=== PATIENT | female | born 1970 | race Caucasian/White ===

== ENCOUNTER 2016-02-20 22:44 | Emergency (ER) | payer SELFPAY ==
[2016-02-20] MEDS ORDERED: MAG HYDROX/AL HYDROX/SIMETH SUSP 30 ML UDCUP PO ONE (23:30)
[2016-02-20] MEDS ORDERED: LIDOCAINE 2% VISCOUS SOLN 20 ML UDCUP PO ONE (23:30)
[2016-02-20] MEDS ORDERED: METOCLOPRAMIDE HCL ORAL SOLN 10 MG/10 ML UDCUP PO ONE (23:30)
[2016-02-20] MEDS ORDERED: NORMAL SALINE 1000 ML 1,000 ML IV ONE (23:30)
[2016-02-20] MEDS ORDERED: ONDANSETRON HCL INJ/PF 4 MG/2 ML SDV IV ONE (23:30)
--- NOTE | 2016-02-20 23:47 | ER Document Report ---
ED General - General Chief Complaint: Abdominal Pain Stated Complaint: NAUSEA Notes: Patient is a 45-year-old female presents with complaint of some pain in the center of her abdomen. She says is mild early in the day, but became much worse after dinner. No fevers. No dysuria. Some nausea but no vomiting. She doesn't history of gallstones. Only previous bowel surgery . She is not alcoholic 20 years ago but has not had alcohol since then. She says she had a small amount of blood in her stool earlier today. No further bloody stools. No diarrhea. No other complaints at this time. TRAVEL OUTSIDE OF THE [place] IN LAST 30 DAYS: No - Related Data Allergies/Adverse Reactions: codeine Allergy (Verified 02/01/16 12:58) diphenhydramine [From Benadryl] Allergy (Verified 02/01/16 12:58) morphine Allergy (Verified 02/01/16 12:58) Past Medical History - Social History Smoking Status: Former Smoker Frequency of alcohol use: None Drug Abuse: None Family History: Reviewed & Not Pertinent Neurological Medical History: Denies: Hx Seizures Past Surgical History: Reports: Hx Section Review of Systems - Review of Systems Notes: My Normal Review Basic REVIEW OF SYSTEMS: CONSTITUTIONAL : Denies fever, chills, or sweats. Denies recent illness. Chest: No chest pain RESPIRATORY: Denies cough, cold, or chest congestion. Denies shortness of breath, difficulty breathing, or wheezing. GASTROINTESTINAL: Moderate central abdominal pain. Some nausea. Denies constipation. GENITOURINARY: Denies difficulty urinating, painful urination, burning, frequency, or blood in urine. FEMALE GENITOURINARY: Denies vaginal bleeding, abnormal or irregular periods. LMP: MUSCULOSKELETAL: Denies neck or back pain or joint pain or swelling. SKIN: Denies rash or skin lesions.. NEUROLOGICAL: Denies altered mental status or loss of consciousness. Denies headache. Denies weakness or paralysis or loss of use of either side. Denies problems with gait or speech. Denies sensory or motor loss. ALL OTHER SYSTEMS REVIEWED AND NEGATIVE. Physical Exam - Vital signs Vitals: Temp Pulse Resp BP Pulse Ox 99.8 F 70 16 131/61 H 97 02/20/16 22:55 02/20/16 22:55 02/20/16 22:55 02/20/16 22:55 02/20/16 22:55 - Notes Notes: General Appearance: Well nourished, alert, cooperative, no acute distress, moderate obvious discomfort. Vitals: reviewed, See vital signs table. Head: no swelling or tenderness to the head Eyes: PERRL, EOMI, Conjuctiva clear Mouth: No decreasd moisture Neck: Supple, no neck tenderness, No thyromegaly Lungs: No wheezing, No rales, No rhonci, No accessory muscle use, good air exchange bilaterally. Heart: Normal rate, Regular rythm, No murmur, no rub Abdomen: Normal BS, soft, No rigidity, mild diffuse abdominal tenderness to palpation that is worse over the central abdomen., No guarding, no rebound, no abdominal masses, no organomegaly Extremities: strength 5/5 in all extremities, good pulses in all extremities, no swelling or tenderness in the extremities, no edema. Skin: warm, dry, appropriate color, no rash Neuro: speech clear, oriented x 3, normal affect, responds appropriately to questions. Course - Vital Signs Vital signs: Temp Pulse Resp BP Pulse Ox 99.8 F 70 16 131/61 H 97 02/20/16 22:55 02/20/16 22:55 02/20/16 22:55 02/20/16 22:55 02/20/16 22:55 - Laboratory Result Diagrams: 02/20/16 23:40 02/20/16 23:40 Laboratory results interpreted by me: 02/20/16 02/20/16 02/20/16 23:40 23:40 23:55 WBC 10.7 H Hgb 8.4 L Hct 27.3 L MCV 62 L MCH 19.2 L MCHC 30.8 L RDW 20.0 H Band Neutrophils % 2 L Lymphocytes % (Manual) 12 L Abs Neuts (Manual) 8.6 H Chloride 109 H Carbon Dioxide 21 L Total Protein 6.2 L Albumin 3.3 L Urine Blood SMALL H Ur Leukocyte Esterase TRACE H - Transfer of Care Notes: 02/21/16 01:51 Patient's pain is gone and she looks well. She does have some anemia her labs. This has been gradually worsening over last several months. I did explain this to her and informed her that it's very important that she follows up with the GI physician, Dr. Villareal, for reevaluation pulse possible colonoscopy and endoscopy. Being that her pain was not upper middle portion of her abdomen I will place on Prilosec. Encouraged to take this daily. Informed her that she still has any pain after 1-2 days she must return to ER for close reevaluation. Patient agrees with plan and will be discharged home. Dictation of this chart was performed using voice recognition software; therefore, there may be some unintended grammatical errors. Discharge - Discharge Clinical Impression: Abdominal pain Qualifiers: Abdominal location: periumbilical Qualified Code(s): R10.33 - Periumbilical pain Anemia Qualifiers: Anemia type: unspecified type Qualified Code(s): D64.9 - Anemia, unspecified Condition: Good Disposition: HOME, SELF-CARE Additional Instructions: ABDOMINAL PAIN: There are many causes of abdominal pain. Pain can mean a serious problem requiring surgery (such as appendicitis). It can also be an innocent problem that goes away on its own (such as a viral infection). Often, time must pass to determine the cause of pain. The physician does not feel that hospitalization is necessary, at present. Things may change within the next 24 hours. Call the doctor or come back for re- examination if any problems occur, such as: (1) Pain that becomes more severe, steady, or becomes concentrated in one specific area. Also, pain that is more severe with movement or coughing. (2) Vomiting that persists or becomes more frequent. (3) Blood in the vomitus, urine, or bowel movements. Blood in the stool may have a tarry or black appearance. (4) Shaking chills or fever greater than 100 degrees F. (5) The abdomen becomes more distended or swollen. (6) Bowel movements cease. (7) Failure to improve as expected. NORMAL EXAM AND WORKUP: At this time, your examination and workup show no significant abnormality. No significant abnormal physical findings are noted. Although your examination and all studies that were ordered showed no significant abnormal finding, there are no examinations and no studies that are 100% accurate. There is always the possibility that some abnormality could exist and not be detected with physical examination or within the limits and capabilities of laboratory and other studies. You should return or follow up as you were instructed on your visit today for further evaluation if your symptoms do not resolve. FOLLOW-UP CARE: If you have been referred to a physician for follow-up care, call the physician s office for an appointment as you were instructed or within the next two days. If you experience worsening or a significant change in your symptoms, notify the physician immediately or return to the Emergency Department at any time for re-evaluation. FOLLOW-UP CARE: You should return for re-evaluation in 24 -48 hours if you continue to have any pain. This follow-up visit is important. If you are unable to return , or feel that the return visit is unnecessary, please call us. Please return to the ER immediately if you have worsening pain, fevers, or recurrent bowel movements that has blood in it. Please call Dr. Villareal, GI physician, for follow -up and reevaluation. You may need a colonoscopy or upper endoscopy to further evaluate the cause of your chronic anemia. This is important to rule out such things as colon polyps which can sometimes lead to colon cancer. This will be up to him based on his evaluation of you. Please do not hesitate to return to ER immediately if you feel your symptoms are worsening. Prescriptions: Omeprazole Magnesium [Prilosec Otc] 20 mg PO DAILY #30 tablet. Sucralfate [Carafate 1 gm Tablet] 1 gm PO ACHS #120 tablet Forms: Return to Work Referrals: NICHOLE VILLAREAL MD [ACTIVE STAFF] - Follow up in 3-5 days
[2016-02-21] LABS: ALANINE AMINOTRANSFERASE 19 U/L (9-52); ALBUMIN 3.3 g/dL (3.5-5.0); ALKALINE PHOSPHATASE 73 U/L (38-126); ANION GAP 12 (5-19); ASPARTATE AMINO TRANSFERASE 22 U/L (14-36); BILIRUBIN,TOTAL 0.5 mg/dL (0.2-1.3); BLOOD UREA NITROGEN 12 mg/dL (7-20); CALCIUM 8.7 mg/dL (8.4-10.2); CARBON DIOXIDE 21 mmol/L (22-30); CHLORIDE 109 mmol/L (98-107); CREATININE RESULT 0.63 mg/dL (0.52-1.25); GLUCOSE 103 mg/dL (75-110); LIPASE 90.4 U/L (23-300); POTASSIUM 3.8 mmol/L (3.6-5.0); SODIUM 141.7 mmol/L (137-145); TOTAL PROTEIN 6.2 g/dL (6.3-8.2)
[2016-02-21 00:02] LABS: HEMATOCRIT 27.3 % (36.0-47.0); HEMOGLOBIN 8.4 g/dL (12.0-15.5); HGB HCT DIFFERENCE -2.1; MEAN CORPUSCULAR HEMOGLOBIN 19.2 pg (27.0-33.4); MEAN CORPUSCULAR HGB CONC 30.8 g/dL (32.0-36.0); RED BLOOD COUNT 4.38 10^6/uL (3.72-5.28); WHITE BLOOD COUNT 10.7 10^3/uL (4.0-10.5)
[2016-02-21 00:13] LABS: MEAN CORPUSCULAR VOLUME 62 fl (80-97)
[2016-02-21 00:16] LABS: BAND NEUTROPHILS % (MANUAL) 2 % (3-5); BASOPHILS % (MANUAL) 0 % (0-2); EOSINOPHILS % (MANUAL) 2 % (0-6); LYMPHOCYTES % (MANUAL) 12 % (13-45); TOTAL CELLS COUNTED 100
[2016-02-21 00:18] LABS: ANISOCYTOSIS 2+; HYPOCHROMASIA SLIGHT; MICROCYTOSIS 3+; OVALOCYTES SLIGHT; POIKILOCYTOSIS SLIGHT; TOXIC GRANULATION SLIGHT; TOXIC VACUOLATION PRESENT
[2016-02-21] MEDS ORDERED: FENTANYL CITRATE INJ/PF 100 MCG/2 ML AMPUL IV ONE (00:33)
[2016-02-21 00:35] LABS: APPEARANCE,URINE SLIGHTLY-CLOUDY; BILIRUBIN,URINE NEGATIVE (NEGATIVE); GLUCOSE, URINE NEGATIVE (NEGATIVE); KETONES,URINE NEGATIVE (NEGATIVE); LEUKOCYTE ESTERASE,URINE TRACE (NEGATIVE); NITRITE,URINE NEGATIVE (NEGATIVE); PROTEIN,URINE NEGATIVE (NEGATIVE); URINE SPECIFIC GRAVITY 1.015; UROBILINOGEN,URINE NEGATIVE mg/dL (<2.0)
[2016-02-21] MEDS ORDERED: FAMOTIDINE 20 MG TABLET PO ONE (01:52)
[2016-02-21 02:12] VITALS: BP 132/73
[2016-02-21 13:37] LABS: PATH REVIEW PATHOLOGIST REVIEWED
== END 2016-02-21 02:12 | disposition home or self-care (01) ==
LOC: ER 22:44
DX: R10.33 Periumbilical pain (principal); R10.817 Generalized abdominal tenderness; K92.1 Melena; D64.9 Anemia, unspecified; R11.0 Nausea; Z88.5 Allergy status to narcotic agent; Z88.8 Allergy status to other drugs, medicaments and biological substances
CPT/HCPCS: 99284; 96361; 96374; 36415; 83690; 84703; 85025; 80053; 81001; J3010; J3490; J2405; J7030

== ENCOUNTER 2016-02-23 13:31 | Emergency (ER) | payer SELFPAY ==
--- NOTE | 2016-02-23 13:36 | ER Document Report ---
ED Medical Screen (RME) - General Stated Complaint: BACK PAIN Mode of Arrival: Medic Information source: Patient Notes: Presents to the emergency department via EMS for chronic back pain. Patient reports pain across her whole lower back making her leg go numb. Denies fever vomiting diarrhea. Denies trauma. TRAVEL OUTSIDE OF THE [place] IN LAST 30 DAYS: No - Related Data Allergies/Adverse Reactions: codeine Allergy (Verified 02/01/16 12:58) diphenhydramine [From Benadryl] Allergy (Verified 02/01/16 12:58) morphine Allergy (Verified 02/01/16 12:58) Past Medical History Neurological Medical History: Denies: Hx Seizures Past Surgical History: Reports: Hx Section
[2016-02-23] MEDS ORDERED: METHYLPREDNISOLONE ACETATE INJ 40 MG/1 ML ML IM ONE (14:44)
[2016-02-23] MEDS ORDERED: KETOROLAC TROMETHAMINE 60 MG/2 ML SDV IM ONE (14:44)
[2016-02-23] MEDS ORDERED: DEXAMETHASONE SOD PHOS INJ 10 MG/1 ML VIAL IM ONE (14:44)
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
[2016-02-23 15:45] VITALS: BP 152/69
== END 2016-02-23 15:40 | disposition home or self-care (01) ==
LOC: ER 13:31
DX: M54.40 Lumbago with sciatica, unspecified side (principal); Z88.5 Allergy status to narcotic agent; Z88.8 Allergy status to other drugs, medicaments and biological substances
CPT/HCPCS: 99283; 96372; J1885; J1020; J1100

== ENCOUNTER 2016-02-24 21:07 | Emergency (ER) | payer SELFPAY ==
[2016-02-24] MEDS ORDERED: KETOROLAC TROMETHAMINE INJ/PF 30 MG/1 ML SDV IV ONE (21:19)
[2016-02-24] MEDS ORDERED: NORMAL SALINE 1000 ML 1,000 ML IV ONE (21:19)
[2016-02-24] MEDS ORDERED: ONDANSETRON HCL INJ/PF 4 MG/2 ML SDV IV ONE (21:20)
--- NOTE | 2016-02-24 21:22 | ER Document Report ---
ED GI/ - General Stated Complaint: ABDOMINAL PAIN Time seen by provider: 21:20 Notes: Patient is a 45-year-old female that comes emergency department for chief complaint of pain in her abdomen worse in the mid to lower abdomen, worsening for 4 days, she has not been able to have a bowel movement for about 4 days, she denies nausea or vomiting, denies fever or chills, she reports generalized lower back pain as well. Patient has a known ventral hernia, has had a C- section, takes no daily medications. Patient denies any other medical history. TRAVEL OUTSIDE OF THE [place] IN LAST 30 DAYS: No - Related Data Allergies/Adverse Reactions: codeine Allergy (Verified 02/23/16 13:37) diphenhydramine [From Benadryl] Allergy (Verified 02/23/16 13:37) morphine Allergy (Verified 02/23/16 13:37) Past Medical History - General Information source: Patient - Social History Smoking Status: Never Smoker Frequency of alcohol use: None Lives with: Family Family History: Reviewed & Not Pertinent - Medical History Medical History: Negative Neurological Medical History: Denies: Hx Seizures Renal/ Medical History: Denies: Hx Peritoneal Dialysis Past Surgical History: Reports: Hx Section - Immunizations Immunizations up to date: Yes Hx Diphtheria, Pertussis, Tetanus Vaccination: Yes Review of Systems - Review of Systems Constitutional: No symptoms reported EENT: No symptoms reported Cardiovascular: No symptoms reported Respiratory: No symptoms reported Gastrointestinal: See HPI Genitourinary: No symptoms reported Female Genitourinary: No symptoms reported Musculoskeletal: No symptoms reported Skin: No symptoms reported Hematologic/Lymphatic: No symptoms reported Neurological/Psychological: No symptoms reported Physical Exam - Vital signs Vitals: Temp Pulse Resp BP Pulse Ox 98.8 F 62 18 132/62 H 100 02/24/16 21:56 02/24/16 21:56 02/24/16 21:56 02/24/16 21:56 02/24/16 21:56 Interpretation: Normal - General General appearance: Alert, Anxious In distress: Moderate - Patient on her side, holding her abdomen, appears to be in pain - HEENT Head: Normocephalic, Atraumatic Eyes: Normal Conjunctiva: Normal Extraocular movements intact: Yes Eyelashes: Normal Pupils: PERRL Sinus: Normal Nasal: Normal Mouth/Lips: Normal Mucous membranes: Normal Pharynx: Normal Neck: Normal - Respiratory Respiratory status: No respiratory distress Chest status: Nontender Breath sounds: Normal. No: Decreased air movement, Wheezing Chest palpation: Normal - Cardiovascular Rhythm: Regular. No: Tachycardia Heart sounds: Normal auscultation, S1 appreciated, S2 appreciated Murmur: No - Abdominal Inspection: Normal Tenderness: Tender - Patient generally tender over her abdomen, she is very tender over the right ventricle area just superior to the umbilical area, there is a palpable hernia, the hernia is very tender to palpation. - Back Back: Normal, Nontender. No: Tender - Extremities General upper extremity: Normal inspection, Nontender, Normal color, Normal ROM , Normal temperature General lower extremity: Normal inspection, Nontender, Normal color, Normal ROM , Normal temperature, Normal weight bearing. No: Rosalio's sign - Neurological Neuro grossly intact: Yes Cognition: Normal Orientation: AAOx4 [place] Coma Scale Eye Opening: Spontaneous [place] Coma Scale Verbal: Oriented Consuelo Coma Scale Motor: Obeys Commands [place] Coma Scale Total: 15 Speech: Normal Motor strength normal: LUE, RUE, LLE, RLE Sensory: Normal - Psychological Associated symptoms: Agitated - Skin Skin Temperature: Warm Skin Moisture: Dry Skin Color: Normal Course - Re-evaluation Re-evalutation: Patient seen here yesterday for flank pain, placed on hydrocodone and methocarbamol. Patient with sudden onset sharp midabdominal pain, pain does appear to be coming from the ventral area, acute abdominal series was performed and shows no free air or air-fluid levels, no acute etiology noted on imaging. CBC, chemistry unremarkable compared to just a few days ago with no significant change in anemia, no leukocytosis, no acidosis. Patient given 100 g of fentanyl, after this I was able to reduce the ventral hernia without any significant difficulty, after this patient's pain symptoms resolved. Patient monitored, had no return of painful symptoms. Discussed with patient, patient will be referred for close follow-up with surgical clinic , patient requesting to leave. Discussed return precautions including return of herniation and inability to reduce. Patient states understanding and agreement. - Vital Signs Vital signs: Temp Pulse Resp BP Pulse Ox 98.8 F 87 15 136/76 H 96 02/24/16 21:56 02/24/16 23:05 02/24/16 23:05 02/24/16 23:05 02/24/16 23:05 - Laboratory Result Diagrams: 02/24/16 21:45 02/24/16 21:45 Laboratory results interpreted by me: 02/24/16 02/24/16 21:45 21:45 WBC 13.9 H Hgb 8.5 L Hct 28.3 L MCV 63 L MCH 18.8 L MCHC 30.0 L RDW 19.9 H Plt Count 490 H Seg Neuts % (Manual) 79 H Lymphocytes % (Manual) 10 L Abs Neuts (Manual) 11.0 H Albumin 3.4 L Discharge - Discharge Clinical Impression: Abdominal pain Qualifiers: Abdominal location: periumbilical Qualified Code(s): R10.33 - Periumbilical pain Ventral hernia Qualifiers: Obstruction and gangrene presence: without obstruction or gangrene Qualified Code(s): K43.9 - Ventral hernia without obstruction or gangrene Condition: Stable Disposition: HOME, SELF-CARE Additional Instructions: Your x-ray shows some retained stool but no concerning abnormality. Lab work is unchanged from previously showing anemia. Your ventral hernia needs to be repaired. Please call the surgical clinic as referred, take stool softener daily, take pain medication only if needed, drink plenty of fluids, avoid lifting. Return immediately to the emergency department for any concerning or worsening symptoms. Prescriptions: Docusate Sodium [Colace 100 mg Capsule] 100 mg PO ASDIR PRN #30 capsule PRN Reason: Oxycodone HCl/Acetaminophen [Percocet 5-325 mg Tablet] 1 tab PO Q4H PRN #15 tablet PRN Reason: Referrals: [facility] [Provider Group] - 02/27/16
[2016-02-24 22:07] LABS: HEMATOCRIT 28.3 % (36.0-47.0); HEMOGLOBIN 8.5 g/dL (12.0-15.5); HGB HCT DIFFERENCE -2.8; MEAN CORPUSCULAR HEMOGLOBIN 18.8 pg (27.0-33.4); RED BLOOD COUNT 4.51 10^6/uL (3.72-5.28); RED CELL DISTRIBUTION WIDTH 19.9 % (11.5-14.0); WHITE BLOOD COUNT 13.9 10^3/uL (4.0-10.5)
[2016-02-24] MEDS ORDERED: FENTANYL CITRATE INJ/PF 100 MCG/2 ML AMPUL IV ONE (22:22)
[2016-02-24 22:23] LABS: ALANINE AMINOTRANSFERASE 26 U/L (9-52); ALBUMIN 3.4 g/dL (3.5-5.0); ALKALINE PHOSPHATASE 78 U/L (38-126); ANION GAP 12 (5-19); ASPARTATE AMINO TRANSFERASE 15 U/L (14-36); BILIRUBIN,TOTAL 0.4 mg/dL (0.2-1.3); BLOOD UREA NITROGEN 17 mg/dL (7-20); CALCIUM 8.9 mg/dL (8.4-10.2); CARBON DIOXIDE 25 mmol/L (22-30); CHLORIDE 106 mmol/L (98-107); CREATININE RESULT 0.71 mg/dL (0.52-1.25); GLUCOSE 86 mg/dL (75-110); LIPASE 103.1 U/L (23-300); POTASSIUM 3.7 mmol/L (3.6-5.0); SODIUM 142.6 mmol/L (137-145); TOTAL PROTEIN 6.7 g/dL (6.3-8.2)
[2016-02-24 22:30] LABS: BASOPHILS % (MANUAL) 0 % (0-2); EOSINOPHILS % (MANUAL) 1 % (0-6); LYMPHOCYTES % (MANUAL) 10 % (13-45); TOTAL CELLS COUNTED 100
[2016-02-24 22:34] LABS: ACANTHOCYTES SLIGHT; ANISOCYTOSIS 2+; MICROCYTOSIS 3+; POIKILOCYTOSIS 1+; POLYCHROMASIA SLIGHT; TARGET CELLS SLIGHT; TEAR DROP CELLS SLIGHT; TOXIC VACUOLATION PRESENT
[2016-02-24 22:35] LABS: MEAN CORPUSCULAR VOLUME 63 fl (80-97); PLATELET CLUMPS PRESENT
[2016-02-24 22:37] LABS: HYPOCHROMASIA SLIGHT
[2016-02-24 23:31] VITALS: BP 136/76
[2016-02-26 14:32] LABS: PATH REVIEW PATHOLOGIST REVIEWED
== END 2016-02-24 23:30 | disposition home or self-care (01) ==
LOC: ER 21:07
DX: K43.9 Ventral hernia without obstruction or gangrene (principal); R10.30 Lower abdominal pain, unspecified; R10.33 Periumbilical pain; M54.5 Low back pain; Z88.6 Allergy status to analgesic agent
CPT/HCPCS: 99284; 96361; 96374; 96375; 36415; 83690; 85025; 80053; 74022; J3010; J1885; J2405; J7030

== ENCOUNTER 2016-02-26 00:42 | Inpatient (IN) | payer SELFPAY ==
[2016-02-26] MEDS ORDERED: FENTANYL CITRATE INJ/PF 100 MCG/2 ML AMPUL IV ONE (00:57)
[2016-02-26] MEDS ORDERED: NORMAL SALINE 1000 ML 1,000 ML IV ONE (00:57)
--- NOTE | 2016-02-26 00:59 | ER Document Report ---
ED GI/ - General Stated Complaint: ABDOMINAL PAIN Time seen by provider: 00:50 Notes: Patient is a 45-year-old female that comes emergency department by EMS for chief complaint of sharp pain in her middle abdomen, patient was seen here by me last night and had a ventral hernia reduced, she states that she was doing fine today until it spontaneously popped out without any lifting or coughing and this happened just prior to arrival. Patient states she was attempting to push the hernia back in but was unable to and came to the emergency department because of the intense pain. She denies vomiting, fever. Past medical history of , takes no daily medications, denies any other medical history other than anemia. TRAVEL OUTSIDE OF THE [place] IN LAST 30 DAYS: No - Related Data Allergies/Adverse Reactions: codeine Allergy (Verified 02/23/16 13:37) diphenhydramine [From Benadryl] Allergy (Verified 02/23/16 13:37) morphine Allergy (Verified 02/23/16 13:37) Past Medical History - General Information source: Patient - Social History Smoking Status: Never Smoker Frequency of alcohol use: None Drug Abuse: None Lives with: Family Family History: Reviewed & Not Pertinent - Medical History Medical History: Negative Neurological Medical History: Denies: Hx Seizures Renal/ Medical History: Denies: Hx Peritoneal Dialysis Past Surgical History: Reports: Hx Section - Immunizations Immunizations up to date: Yes Hx Diphtheria, Pertussis, Tetanus Vaccination: Yes Review of Systems - Review of Systems Constitutional: No symptoms reported EENT: No symptoms reported Cardiovascular: No symptoms reported Respiratory: No symptoms reported Gastrointestinal: See HPI Genitourinary: No symptoms reported Female Genitourinary: No symptoms reported Musculoskeletal: No symptoms reported Skin: No symptoms reported Hematologic/Lymphatic: No symptoms reported Neurological/Psychological: No symptoms reported Physical Exam - Vital signs Vitals: Temp Pulse Resp BP Pulse Ox 98.3 F 71 20 125/82 97 02/26/16 00:53 02/26/16 00:53 02/26/16 00:53 02/26/16 00:53 02/26/16 00:53 Interpretation: Normal - General General appearance: Alert, Anxious In distress: Moderate - Patient obviously in pain, holding her abdomen - HEENT Head: Normocephalic, Atraumatic Eyes: Normal Conjunctiva: Normal Extraocular movements intact: Yes Eyelashes: Normal Pupils: PERRL Mouth/Lips: Normal Mucous membranes: Normal Pharynx: Normal Neck: Normal - Respiratory Respiratory status: No respiratory distress Chest status: Nontender Breath sounds: Normal. No: Decreased air movement, Nonproductive cough, Wheezing Chest palpation: Normal - Cardiovascular Rhythm: Regular. No: Tachycardia Heart sounds: Normal auscultation, S1 appreciated, S2 appreciated Murmur: No - Abdominal Tenderness: Tender - Tender generally over the abdomen, most significantly over the superior umbilical ventral area, hernia is able to be felt, unable to reduce - Back Back: Normal, Nontender - Extremities General upper extremity: Normal inspection, Nontender, Normal color, Normal ROM , Normal temperature General lower extremity: Normal inspection, Nontender, Normal color, Normal ROM , Normal temperature, Normal weight bearing. No: Rosalio's sign - Neurological Neuro grossly intact: Yes Cognition: Normal Orientation: AAOx4 [place] Coma Scale Eye Opening: Spontaneous Consuelo Coma Scale Verbal: Oriented [place] Coma Scale Motor: Obeys Commands [place] Coma Scale Total: 15 Speech: Normal Motor strength normal: LUE, RUE, LLE, RLE Sensory: Normal - Psychological Associated symptoms: Normal affect, Normal mood - Skin Skin Temperature: Warm Skin Moisture: Dry Skin Color: Normal Course - Re-evaluation Re-evalutation: Gave patient febrile with good resolution of symptoms, however afterwards immediately I attempted to reduce the hernia like I did yesterday, unable to reduce the hernia, significant pain to the area. General surgery consulted, Dr. Watts will come evaluate the patient. Dr. Watts recommending surgery, hernia has not been reduced, patient will be given Unasyn, surgeon is ordering pain medicine and fluids. Patient will be kept nothing by mouth. - Vital Signs Vital signs: Temp Pulse Resp BP Pulse Ox 98.3 F 71 20 125/82 97 02/26/16 00:53 02/26/16 00:53 02/26/16 00:53 02/26/16 00:53 02/26/16 00:53 - Laboratory Result Diagrams: 02/26/16 01:15 02/26/16 01:15 Laboratory results interpreted by me: 02/26/16 02/26/16 01:15 01:15 WBC 11.5 H Hgb 8.2 L Hct 27.7 L MCV 63 L MCH 18.6 L MCHC 29.6 L RDW 20.0 H Plt Count 504 H Chloride 108 H AST 13 L Albumin 3.2 L Discharge - Discharge Clinical Impression: Ventral hernia Qualifiers: Obstruction and gangrene presence: with obstruction but without gangrene Qualified Code(s): K43.6 - Other and unspecified ventral hernia with obstruction , without gangrene Abdominal pain Qualifiers: Abdominal location: generalized Qualified Code(s): R10.84 - Generalized abdominal pain Condition: Stable Disposition: ADMITTED INPATIENT Admitting Provider: Surgicalist Unit Admitted: Surgical Floor
[2016-02-26 01:33] LABS: ABSOLUTE BASOPHILS # (AUTO) 0.1 10^3/uL (0.0-0.2); ABSOLUTE EOSINOPHILS # (AUTO) 0.3 10^3/uL (0.0-0.6); ABSOLUTE NEUT (AUTO) 8.1 10^3/uL (1.7-8.2); BASOPHILS % (AUTO) 0.6 % (0-2); EOSINOPHILS % (AUTO) 2.5 % (0-6); HEMATOCRIT 27.7 % (36.0-47.0); HEMOGLOBIN 8.2 g/dL (12.0-15.5); HGB HCT DIFFERENCE -3.1; LYMPHOCYTES % (AUTO) 17.9 % (13-45); MEAN CORPUSCULAR HEMOGLOBIN 18.6 pg (27.0-33.4); MEAN CORPUSCULAR HGB CONC 29.6 g/dL (32.0-36.0); MEAN CORPUSCULAR VOLUME 63 fl (80-97); MONOCYTES % (AUTO) 8.5 % (3-13); RED BLOOD COUNT 4.43 10^6/uL (3.72-5.28); SEGMENTED NEUTROPHILS % (AUTO) 70.5 % (42-78); WHITE BLOOD COUNT 11.5 10^3/uL (4.0-10.5)
[2016-02-26 01:57] LABS: ALANINE AMINOTRANSFERASE 21 U/L (9-52); ALBUMIN 3.2 g/dL (3.5-5.0); ALKALINE PHOSPHATASE 70 U/L (38-126); ANION GAP 13 (5-19); ASPARTATE AMINO TRANSFERASE 13 U/L (14-36); BILIRUBIN,TOTAL 0.3 mg/dL (0.2-1.3); BLOOD UREA NITROGEN 15 mg/dL (7-20); CALCIUM 9.1 mg/dL (8.4-10.2); CARBON DIOXIDE 24 mmol/L (22-30); CHLORIDE 108 mmol/L (98-107); CREATININE RESULT 0.71 mg/dL (0.52-1.25); GLUCOSE 86 mg/dL (75-110); POTASSIUM 3.9 mmol/L (3.6-5.0); SODIUM 144.5 mmol/L (137-145); TOTAL PROTEIN 6.4 g/dL (6.3-8.2)
[2016-02-26 02:07] LABS: POLYCHROMASIA 1+; TOXIC GRANULATION SLIGHT
[2016-02-26 02:08] LABS: ANISOCYTOSIS 2+; MICROCYTOSIS 3+; OVALOCYTES 1+; POIKILOCYTOSIS 1+; TEAR DROP CELLS SLIGHT
[2016-02-26 02:09] LABS: HYPOCHROMASIA 2+; TOXIC VACUOLATION PRESENT
[2016-02-26] MEDS ORDERED: AMPICILLIN SOD/SULBACTAM 3 GM VIAL IV ONE (02:19)
[2016-02-26] MEDS ORDERED: NORMAL SALINE 1000 ML 1,000 ML IV PRN (02:19)
[2016-02-26] MEDS ORDERED: ONDANSETRON HCL INJ/PF 4 MG/2 ML SDV IV PRN ×3 (02:32→13:27)
[2016-02-26] MEDS: NORMAL SALINE 1000 ML 1,000 ML IV PRN ×2 (03:43→23:45)
[2016-02-26] MEDS: HYDROMORPHONE HCL INJ/PF 2 MG/ML AMPULE IV PRN ×4 (03:53→22:42)
--- NOTE | 2016-02-26 04:33 | HISTORY AND PHYSICAL E ---
History and Physical NAME: CARMINA HUBER : 1970 AGE: 45Y ADMITTED: 02/26/2016 ROOM: ED16 REASON FOR ADMISSION: Incarcerated ventral hernia. HISTORY OF PRESENT ILLNESS: This 45-year-old female returned to the emergency room for the second time in 20 hours and the fourth time in 3 weeks because of abdominal pain secondary to a ventral supraumbilical hernia. The patient complains of significant pain and did not know she had a hernia until approximately 3 weeks ago. The patient came to the emergency room 3 weeks ago with abdominal pain, was seen and sent home. The patient came back several days later and CT scan of the abdomen revealed a ventral hernia and she was sent home. The patient came back again yesterday evening at approximately 10:30 and the hernia was able to be reduced and she was again sent home and now comes back with recurrent incarcerated hernia, which now is quite tender and cannot be reduced. The patient denies any nausea or vomiting, change in bowel habits, fever or chills. Denies any previous surgery other than C-sections. The patient now is in need of repair of this incisional hernia. PAST MEDICAL HISTORY: There is no diabetes mellitus, hypertension, cardiac, renal, pulmonary, liver disease or bleeding tendencies. PAST SURGICAL HISTORY: History of , last one being 11 years ago. ALLERGIES: None. MEDICATIONS: None. REVIEW OF SYSTEMS: Patient has no symptoms referable to the ear, nose and throat, respiratory or cardiovascular systems. Gastrointestinal symptoms as in history of present illness. Patient denies any symptoms referable to genitourinary, musculoskeletal, integumentary, lymphatic, endocrine or psychiatric systems. SOCIAL HISTORY: The patient smokes. One pack lasts approximately about 4 days. The patient denies any alcohol abuse and denies illicit drugs. PHYSICAL EXAMINATION: GENERAL: Reveals a 45-year-old female who was morbidly obese at 106 kilograms, who is normally nourished, normally developed and in no acute distress. VITAL SIGNS: Noted and stable. HEENT: There is no conjunctival pallor or scleral icterus. Mucous membranes are slightly dry. NECK: Supple without nodes, masses, thyroid, JVD or bruits. Trachea is midline. LUNGS: Clear anteriorly with good entry. CARDIOVASCULAR: Pulses are regular without murmurs or gallops. ABDOMEN: Morbidly obese and patient has marked tenderness in the supraumbilical region with guarding. An indistinct ventral hernia is palpated, but because of the significant tenderness, the borders cannot be easily identified. Bowel sounds are present. There is no organomegaly or masses. No bruits are noted. EXTREMITIES: Show full range of motion without edema or tenderness. There is adequate distal pulses. IMPRESSION: Incarcerated supraumbilical ventral hernia. PLAN: The patient to be admitted to the hospital and prepared for repair of ventral hernia by Dr. Maldonado in the morning. DICTATING PHYSICIAN: SPENCER MIMS M.D. [id number] PHY#: [id number] ID: [id number] JOB#: [id number] ACCT: [id number] cc: >
[2016-02-26] MEDS: ENOXAPARIN SODIUM INJ 40 MG/0.4 ML DISP.SYRIN SUBCUT SCH (08:23)
[2016-02-26] MEDS ORDERED: BUPIVACAINE HCL 0.25 % INJ/PF (2.5 MG/1 ML) 30 ML VIAL ONE (10:34)
[2016-02-26] MEDS ORDERED: MIDAZOLAM 2 MG/2 ML INJ ONE (11:08)
[2016-02-26] MEDS ORDERED: ACETAMINOPHEN 100 ML IV ONE (11:08)
[2016-02-26] MEDS ORDERED: HYDROMORPHONE HCL INJ/PF 2 MG/ML AMPULE ONE (11:08)
[2016-02-26] MEDS ORDERED: EPHEDRINE SULFATE INJ 50 MG/1 ML AMPULE ONE (11:08)
[2016-02-26] MEDS ORDERED: PROPOFOL INJ 200 MG/20 ML VIAL IV ONE (11:08)
[2016-02-26] MEDS ORDERED: MEPERIDINE HCL/PF INJ 25 MG/1 ML DISP.SYRIN IV PRN (12:29)
[2016-02-26] MEDS ORDERED: PROMETHAZINE HCL INJ 25 MG/1 ML VIAL IV PRN ×2 (12:29)
[2016-02-26] MEDS ORDERED: FENTANYL CITRATE INJ/PF 100 MCG/2 ML AMPUL IV PRN ×3 (12:29)
[2016-02-26] MEDS ORDERED: MORPHINE SULFATE 10 MG/ML INJ IV PRN (13:27)
[2016-02-26] MEDS ORDERED: OXYCODONE-ACETAMINOPHEN 5-325 MG TABLET PO PRN (13:27)
--- NOTE | 2016-02-26 13:37 | Operative Report ---
Operative Report DATE OF SURGERY: 02/26/16 PREOPERATIVE DIAGNOSIS: 1. Incarcerated umbilical hernia POSTOPERATIVE DIAGNOSIS: 1. Incarcerated umbilical hernia. 2. Multiple small hernias infraumbilical region. 3. Intra-abdominal adhesions. OPERATION: 1. Laparoscopic lysis of adhesions. 2. Primary closure of umbilical hernia with avkgxf-[id number] #1 PDS sutures. 3. Reinforcement of abdominal wall using 15 centimeter diameter mesh by coviditayla SURGEON: JESSICA LUNA CREAM SEPARATOR OPERATOR: SANYA MCCALL ANESTHESIA: GA TISSUE REMOVED OR ALTERED: Portions of incarcerated omentum COMPLICATIONS: None ESTIMATED BLOOD LOSS: scant INTRAOPERATIVE FINDINGS: See below PROCEDURE: The patient was seen in the preoperative holding area. The operation including the mechanics of the procedure, as well as risks benefits and alternatives were explained to the patient. The patient taken to the operating room where general anesthesia was induced. A Tejeda catheter was inserted uneventfully. The abdomen was exposed, prepped and draped in a sterile fashion. Surgical plan and surgical timeout were conducted The peritoneal cavity was entered by placing a very's needle left upper quadrant. Pneumoperitoneum was established. Veress needle was removed and a 5 mm port was inserted and under direct visualization using a 5 mm flexible scope , 2 additional ports were placed one in the left lower quadrant one in the right midfield. Findings are significant for a moderate sized incarcerated umbilical hernia with omentum stuck in the hernia cavity. In addition there were adhesions between the more distal omentum and the anterior abdominal wall with 2 in the umbilicus and the pelvis. The uterus was adhesed to the anterior abdominal wall centrally. Photos were taken. Using a combination of blunt and electrocautery scissor dissection, all of the adhesions were taken down. This took about 30 minutes. Likewise in a piecemeal fashion where able to debride the incarcerated omentum out of the umbilical hernia defect. We debrided all of the incarcerated omentum successfully. We inspected the omentum and found hemostasis to be excellent. All of the above was performed under direct visualization with high degree of confidence there was no injury to bowel. We elected to close the visible defect at the umbilicus with 2 dqvfhy-ug-lchtr # 1 PDS sutures and this was accomplished successfully by closing the defect transversely using the disposable suture passer. Inferior to this area in midline partial hernia cavities which were very shallow. I did not feel there was suitable for primary closure with suture. At this point I felt reinforcement using an intraperitoneally placed medium weight mesh was appropriate. We brought on the field a parietex centimeters diameter round mass. It was secured with stitches of 0 PDS at the 12, 3, 6, 9: 00 positions. The mesh was brought up to the anterior abdominal wall using the disposable suture passer. We then secured the mesh in between the stitches with 2 rows of covidian maricel. This mesh reinforced the primary umbilical hernia closure site as well as the fascial defects between the umbilicus and the point where the uterus was tethered to the anterior abdominal wall. Were satisfied with the repair. All ports removed under direct visualization after we checked for hemostasis which was excellent. Skin incisions were anesthetized prior to port insertion with quarter percent Marcaine plain. All wounds were closed with 3-0 Vicryl. Patient stopped procedure well extubated and taken recovery in stable condition. The physician research assistant member, Ms. Mccall, provided assistance during this case by: Assisting and port insertion, retracting tissue, instillation of local anesthesia and closure of skin incisions.
--- NOTE | 2016-02-26 13:56 | PDOC PROGRESS REPORT ---
Subjective Progress Note for:: 02/26/16 Subjective:: Patient complaining of abdominal pain. I saw the patient at approximately 8:00 this morning on 02/26/2016. As documented is a late entry. The patient has been kept nothing by mouth. Physical Exam Vital Signs: Temp Pulse Resp BP Pulse Ox 97.8 F 55 L 16 137/73 H 100 02/26/16 09:03 02/26/16 09:03 02/26/16 09:03 02/26/16 09:03 02/26/16 09:03 Intake & Output 02/25/16 02/26/16 02/27/16 06:59 06:59 06:59 Intake Total 0 215 Output Total 0 Balance 0 215 Weight 111.8 kg 111.5 kg General appearance: PRESENT: no acute distress GI/Abdominal exam: PRESENT: other - Resume on her to large umbilical hernia with incarcerated tissue likely omentum. The remainder the abdomen is soft. Assessment & Plan - Diagnosis (1) Ventral hernia Qualifiers: Obstruction and gangrene presence: with obstruction but without gangrene Qualified Code(s): K43.6 - Other and unspecified ventral hernia with obstruction, without gangrene Is this a current diagnosis for this admission?: YesPlan: 1. This is a chronically incarcerated umbilical hernia, symptomatic, bringing the patient to the emergency department on several occasions this past year. He deserves repair. I have explained to the patient approaching the hernia repair laparoscopically with mesh, with the possible need to convert to an open procedure. I did explain the mechanics of the operation as well as an explanation of the risks benefits and alternatives including bleeding, infection, bowel injury, and need for additional surgery. She expressed understanding and agreed to proceed. 2. Of note preoperative evaluation of her CT scan revealed a 5.5 cm left adrenal mass versus uniform adrenal enlargement. I reviewed the images with the radiologist who feels this is likely a benign or adenomatous process. The patient does not manifest any stigmata of the pheO chromocytoma or other functional adrenal - Time Time Spent with patient: 15-24 minutes
[2016-02-26] MEDS ORDERED: FENTANYL CITRATE INJ/PF 100 MCG/2 ML AMPUL ONE (14:00)
[2016-02-26] MEDS ORDERED: FENTANYL CITRATE INJ/PF 100 MCG/2 ML AMPUL INJ ONE (14:07)
[2016-02-26] MEDS ORDERED: SUCCINYLCHOLINE CHLORIDE INJ 200 MG/10 ML VIAL ONE (14:39)
[2016-02-26] MEDS ORDERED: KETOROLAC TROMETHAMINE 60 MG/2 ML SDV ONE (14:39)
[2016-02-26] MEDS ORDERED: DEXAMETHASONE SOD PHOSPHATE INJ 4 MG/1 ML VIAL ONE (14:39)
[2016-02-26] MEDS ORDERED: METOCLOPRAMIDE HCL INJ/PF 10 MG/2 ML SDV ONE (14:39)
[2016-02-26] MEDS ORDERED: NEOSTIGMINE METHYLSULFATE 10 MG/10 ML VIAL ONE (14:39)
[2016-02-26] MEDS ORDERED: LIDOCAINE 2% INJ-PF (20 MG/ML) 10 ML AMPUL ONE (14:39)
[2016-02-26] MEDS ORDERED: ONDANSETRON HCL INJ/PF 4 MG/2 ML SDV ONE (14:39)
[2016-02-26] MEDS ORDERED: GLYCOPYRROLATE INJ 0.4 MG/2 ML VIAL ONE ×2 (14:39→14:48)
[2016-02-26] MEDS ORDERED: ROCURONIUM BROMIDE INJ 50 MG/5 ML VIAL IV ONE (14:39)
[2016-02-26] MEDS ORDERED: GLYCOPYRROLATE INJ 0.4 MG/2 ML VIAL IV ONE (15:11)
--- NOTE | 2016-02-26 18:02 | EKG REPORT ---
SEVERITY:- OTHERWISE NORMAL ECG - SINUS BRADYCARDIA : Confirmed by: Calvin Collazo MD 26-Feb-2016 18:02:13
[2016-02-27] MEDS: HYDROMORPHONE HCL INJ/PF 2 MG/ML AMPULE IV PRN ×5 (05:15→23:39)
--- NOTE | 2016-02-27 08:25 | PDOC PROGRESS REPORT ---
Subjective Progress Note for:: 02/27/16 Subjective:: Tolerating liquids but no flatus no bowel movements. Still having abdominal pain requiring IV pain medication. Patient does not feel that she is ready for discharge. Physical Exam Vital Signs: Temp Pulse Resp BP Pulse Ox 97.6 F 42 L 20 123/67 100 02/27/16 04:35 02/27/16 04:35 02/27/16 04:35 02/27/16 04:35 02/27/16 04:35 Intake & Output 02/26/16 02/27/16 02/28/16 06:59 06:59 06:59 Intake Total 1375 4255 Output Total 0 75 Balance 1375 4180 Weight 111.8 kg 111.9 kg General appearance: PRESENT: no acute distress Respiratory exam: PRESENT: clear to auscultation ethan Cardiovascular exam: PRESENT: RRR GI/Abdominal exam: PRESENT: other - Soft, obese, difficult to tell whether she has any distention but abdomen is very soft. Mild tenderness, clean dry and intact with no swelling. Decreased bowel sounds. Extremities exam: PRESENT: other - No swelling and no tenderness Assessment & Plan - Diagnosis (1) Ventral hernia Qualifiers: Obstruction and gangrene presence: with obstruction but without gangrene Qualified Code(s): K43.6 - Other and unspecified ventral hernia with obstruction, without gangrene Is this a current diagnosis for this admission?: YesPlan: Status post the laparoscopic lysis of adhesions and laparoscopic ventral hernia repair. Still having some pain control issues requiring IV pain medication. But otherwise looks reasonably well. Will keep her in the hospital until pain improves. Patient with asymptomatic the sinus bradycardia. Currently not bradycardic after a walk.
[2016-02-27] MEDS: ENOXAPARIN SODIUM INJ 40 MG/0.4 ML DISP.SYRIN SUBCUT SCH (09:36)
[2016-02-28] MEDS: HYDROMORPHONE HCL INJ/PF 2 MG/ML AMPULE IV PRN ×6 (03:37→21:44)
[2016-02-28] MEDS: ENOXAPARIN SODIUM INJ 40 MG/0.4 ML DISP.SYRIN SUBCUT SCH (08:45)
[2016-02-29] MEDS: HYDROMORPHONE HCL INJ/PF 2 MG/ML AMPULE IV PRN ×2 (00:35→06:01)
[2016-02-29] MEDS: ENOXAPARIN SODIUM INJ 40 MG/0.4 ML DISP.SYRIN SUBCUT SCH (08:33)
[2016-02-29] MEDS: HYDROCODONE/ACETAMINOPHEN 5-325 MG TABLET PO PRN ×2 (08:37→12:08)
--- NOTE | 2016-02-29 11:36 | PDOC PROGRESS REPORT ---
Subjective Progress Note for:: 02/28/16 Subjective:: Seen earlier in the day. Denies nausea and vomiting, but also denies any flatus or BM. Tolerating diet. Ambulating. Physical Exam Vital Signs: Temp Pulse Resp BP Pulse Ox 97.6 F 44 L 18 136/60 H 100 02/29/16 07:24 02/29/16 07:24 02/29/16 07:24 02/29/16 07:24 02/29/16 07:24 Intake & Output 02/28/16 02/29/16 03/01/16 06:59 06:59 06:59 Intake Total 1236 1510 Output Total 603 4 Balance 633 1506 Weight 111.2 kg 111.6 kg General appearance: PRESENT: no acute distress Head exam: PRESENT: normocephalic GI/Abdominal exam: PRESENT: distended - While the distended versus morbidly obese., soft, tenderness - Appropriate tenderness., other - Some bowel sounds present. Musculoskeletal exam: PRESENT: ambulatory Neurological exam: PRESENT: alert, oriented to situation Psychiatric exam: PRESENT: appropriate affect, normal mood Assessment & Plan - Diagnosis (1) Ventral hernia Qualifiers: Obstruction and gangrene presence: with obstruction but without gangrene Qualified Code(s): K43.6 - Other and unspecified ventral hernia with obstruction, without gangrene Is this a current diagnosis for this admission?: YesPlan: Still denying any flatus or bowel movement. Tolerating diet. Continue ambulating. Awaiting flatus prior to discharge.
[2016-02-29 13:21] VITALS: BP 134/50
== END 2016-02-29 14:00 | disposition home or self-care (01) | DRG 337 ==
LOC: ER 00:42 → EH 02:26 → UNDOADMIN 02:26 → EH 02:32 → 4N 05:28
PROVIDERS: ATTEND Surgery
PROC: 0DNS4ZZ (ICD-10-PCS; 2016-02-26)
PROC: 0WUF4JZ Supplement Abdominal Wall with Synthetic Substitute, Percutaneous Endoscopic Approach (ICD-10-PCS; principal; 2016-02-26 10:45)
DX: K43.6 Other and unspecified ventral hernia with obstruction, without gangrene (principal); K66.0 Peritoneal adhesions (postprocedural) (postinfection); E66.01 Morbid (severe) obesity due to excess calories; Z68.39 Body mass index [BMI] 39.0-39.9, adult; Z88.6 Allergy status to analgesic agent
CPT/HCPCS: 36415; 752; 80053; 84703; 85025; 93005; 93010; 96361; 96374; 99284; C1781; J0131; J0295; J0330; J1100; J1170; J1650; J1885; J2250; J2405; J2704; J2765; J3010; J3490; J7030

== ENCOUNTER 2016-03-01 05:35 | Emergency (ER) | payer SELFPAY ==
[2016-03-01 06:41] LABS: ALANINE AMINOTRANSFERASE 28 U/L (9-52); ALBUMIN 3.7 g/dL (3.5-5.0); ALKALINE PHOSPHATASE 71 U/L (38-126); ANION GAP 14 (5-19); ASPARTATE AMINO TRANSFERASE 17 U/L (14-36); BILIRUBIN,TOTAL 0.6 mg/dL (0.2-1.3); BLOOD UREA NITROGEN 13 mg/dL (7-20); CALCIUM 9.4 mg/dL (8.4-10.2); CARBON DIOXIDE 23 mmol/L (22-30); CHLORIDE 106 mmol/L (98-107); CREATININE RESULT 0.69 mg/dL (0.52-1.25); GLUCOSE 84 mg/dL (75-110); LIPASE 42.5 U/L (23-300); POTASSIUM 4.2 mmol/L (3.6-5.0); SODIUM 142.6 mmol/L (137-145); TOTAL PROTEIN 6.7 g/dL (6.3-8.2)
[2016-03-01 06:45] LABS: ABSOLUTE BASOPHILS # (AUTO) 0.2 10^3/uL (0.0-0.2); ABSOLUTE EOSINOPHILS # (AUTO) 0.2 10^3/uL (0.0-0.6); ABSOLUTE LYMPHOCYTES (AUTO) 1.7 10^3/uL (0.5-4.7); ABSOLUTE MONOCYTES (AUTO) 0.7 10^3/uL (0.1-1.4); ABSOLUTE NEUT (AUTO) 10.7 10^3/uL (1.7-8.2); BASOPHILS % (AUTO) 1.2 % (0-2); EOSINOPHILS % (AUTO) 1.5 % (0-6); HEMOGLOBIN 8.6 g/dL (12.0-15.5); HGB HCT DIFFERENCE -3.2; LYMPHOCYTES % (AUTO) 12.4 % (13-45); MEAN CORPUSCULAR HEMOGLOBIN 18.4 pg (27.0-33.4); MEAN CORPUSCULAR HGB CONC 29.5 g/dL (32.0-36.0); MEAN CORPUSCULAR VOLUME 62 fl (80-97); MONOCYTES % (AUTO) 5.4 % (3-13); RED BLOOD COUNT 4.65 10^6/uL (3.72-5.28); RED CELL DISTRIBUTION WIDTH 20.8 % (11.5-14.0); SEGMENTED NEUTROPHILS % (AUTO) 79.5 % (42-78); WHITE BLOOD COUNT 13.5 10^3/uL (4.0-10.5)
[2016-03-01] MEDS ORDERED: NORMAL SALINE 1000 ML 1,000 ML IV ONE (07:08)
[2016-03-01 07:09] LABS: TOXIC GRANULATION SLIGHT; TOXIC VACUOLATION PRESENT
[2016-03-01] MEDS ORDERED: FENTANYL CITRATE INJ/PF 100 MCG/2 ML AMPUL IV ONE ×2 (07:09→12:09)
[2016-03-01 07:10] LABS: ANISOCYTOSIS 2+; TEAR DROP CELLS SLIGHT
[2016-03-01] MEDS ORDERED: ONDANSETRON HCL INJ/PF 4 MG/2 ML SDV IV ONE (07:10)
[2016-03-01 07:12] LABS: HYPOCHROMASIA 2+; OVALOCYTES SLIGHT
[2016-03-01 07:13] LABS: MICROCYTOSIS 3+
[2016-03-01 07:14] LABS: POIKILOCYTOSIS 1+
--- NOTE | 2016-03-01 07:14 | ER Document Report ---
ED GI/ - General Mode of Arrival: Medic Information source: Patient TRAVEL OUTSIDE OF THE [place] IN LAST 30 DAYS: No - HPI Patient complains to provider of: Abdominal pain Onset: Other - 02/26/2016 Context: Other - Ventral hernia repair 02/26/2016 Associated symptoms: Constipation Recently seen / treated by doctor: Yes - Hernia repair 02/26/2016 <EUFEMIA PHELPS - Last Filed: 03/01/16 07:08> <CLIFTON DE LEON - Last Filed: 03/01/16 13:14> - General Chief Complaint: Abdominal Pain Stated Complaint: ABDOMINAL PAIN Notes: Patient is a 45-year-old female presenting to the emergency department concerned of worsening severe abdominal pain since she had a ventral hernia repair on 02/26/2016. Patient was discharged from the hospital 02/29/2016, and she has not moved her bowels since prior to surgery. Patient also states that she has not passed gas since she was discharged. Patient requests something for her pain, and states, "I should not have been discharged yet." Patient plans on beginning to go to the [facility] for her primary care management. (EUFEMIA PHELPS) - Related Data Allergies/Adverse Reactions: codeine Allergy (Verified 03/01/16 05:55) diphenhydramine [From Benadryl] Allergy (Verified 03/01/16 05:55) morphine Allergy (Verified 03/01/16 05:55) Past Medical History - General Information source: Patient - Social History Smoking Status: Unknown if Ever Smoked Family History: Reviewed & Not Pertinent Neurological Medical History: Denies: Hx Seizures Renal/ Medical History: Denies: Hx Peritoneal Dialysis Past Surgical History: Reports: Hx Abdominal Surgery - Ventral Hernia Repair , Hx Section - x2 - Immunizations Immunizations up to date: Yes Hx Diphtheria, Pertussis, Tetanus Vaccination: Yes <EUFEMIA PHELPS - Last Filed: 03/01/16 07:08> Review of Systems - Review of Systems Constitutional: No symptoms reported EENT: No symptoms reported Cardiovascular: No symptoms reported Respiratory: No symptoms reported Gastrointestinal: See HPI, Abdominal pain, Constipation Genitourinary: No symptoms reported Female Genitourinary: No symptoms reported Musculoskeletal: No symptoms reported Skin: No symptoms reported Hematologic/Lymphatic: No symptoms reported Neurological/Psychological: No symptoms reported -: Yes All other systems reviewed and negative <EUFEMIA PHELPS - Last Filed: 03/01/16 07:08> Physical Exam - General General appearance: Alert - HEENT Head: Normocephalic, Atraumatic Eyes: Normal Pupils: PERRL - Respiratory Respiratory status: No respiratory distress Chest status: Nontender - Cardiovascular Rhythm: Regular Heart sounds: Normal auscultation Murmur: No - Abdominal Inspection: Morbidly Obese Bowel sounds: Hypoactive Tenderness: Tender - Severe diffuse tenderness to palpation. - Back Back: Normal, Nontender - Extremities General upper extremity: Normal inspection General lower extremity: Normal inspection - Neurological Neuro grossly intact: Yes Cognition: Normal [place] Coma Scale Eye Opening: Spontaneous [place]uel[place] Coma Scale Verbal: Oriented [place] Coma Scale Motor: Obeys Commands [place] Coma Scale Total: 15 Speech: Normal - Psychological Associated symptoms: Normal affect, Normal mood - Skin Skin Temperature: Warm Skin Moisture: Dry Skin Color: Normal <EUFEMIA PHELPS - Last Filed: 03/01/16 07:08> Course - Laboratory Result Diagrams: 03/01/16 05:59 03/01/16 05:59 <EUFEMIA PHELPS - Last Filed: 03/01/16 07:08> - Laboratory Result Diagrams: 03/01/16 05:59 03/01/16 05:59 - Diagnostic Test Radiology reviewed: Image reviewed, Reports reviewed - Constipation <CLIFTON DE LEON - Last Filed: 03/01/16 13:14> - Re-evaluation Re-evalutation: 03/01/16 13:09 Initially the patient would not attempt to hold the enemas in. Eventually she was poked into trying after receiving more narcotic pain medication. There was no stool resulting, but I told her this is not uncommon and getting the enema material up in there and holding onto it helps make things more slippery and eventually gets the bowels moving. She will need to take MiraLAX twice a day and possibly make citrate once a day and drink lots of fluids. (CLIFTON DE LEON) - Vital Signs Vital signs: Temp Pulse Resp BP Pulse Ox 98.9 F 64 20 130/56 H 100 03/01/16 09:51 03/01/16 09:51 03/01/16 09:51 03/01/16 09:51 03/01/16 09:51 (EUFEMIA PHELPS) (CLIFTON DE LEON) - Laboratory Laboratory results interpreted by me: 03/01/16 05:59 WBC 13.5 H Hgb 8.6 L Hct 29.0 L MCV 62 L MCH 18.4 L MCHC 29.5 L RDW 20.8 H Plt Count 524 H Seg Neutrophils % 79.5 H Lymphocytes % 12.4 L Absolute Neutrophils 10.7 H (EUFEMIA PHELPS) (CLIFTON DE LEON) Discharge <EUFEMIA PHELPS - Last Filed: 03/01/16 07:08> <CLIFTON DE LEON - Last Filed: 03/01/16 13:14> - Discharge Clinical Impression: Constipation due to opioid therapy Abdominal pain Qualifiers: Abdominal location: generalized Qualified Code(s): R10.84 - Generalized abdominal pain Condition: Stable Disposition: HOME, SELF-CARE Additional Instructions: Abdominal Pain: There are many causes of abdominal pain. Pain can mean a serious problem requiring surgery (such as appendicitis). It can also be an innocent problem that goes away on its own (such as a viral infection). Often, time must pass to determine the cause of pain. The physician does not feel that hospitalization is necessary, at present. Things may change within the next 24 hours. Call the doctor or come back for re- examination if any problems occur, such as: (1) Pain that becomes more severe, steady, or becomes concentrated in one specific area. Also, pain that is more severe with movement or coughing. (2) Vomiting that persists or becomes more frequent. (3) Blood in the vomitus, urine, or bowel movements. Blood in the stool may have a tarry or black appearance. (4) Shaking chills or fever greater than 100 degrees F. (5) The abdomen becomes more distended or swollen. (6) Bowel movements cease. (7) Failure to improve as expected. Constipation: Constipation is a common problem. Constipation is a common cause of abdominal pain, but sometimes causes no symptoms at all. Causes of constipation include certain medications, dehydration, diets, inactivity, and low-fiber intake. Avoid constipation by eating a diet high in fiber, fruits, and vegetables. Drink plenty of liquids. Get regular exercise. If possible, avoid constipating medicines like narcotic pain medication. Some vitamin tablets can cause constipation. Stool softeners may be needed for difficult cases. An excellent stool softener is Konsyl which is available at [employer], and [employer]. Just add a teaspoon to a glass of pineapple or orange juice daily or twice a day if needed. Laxatives are useful for occasional constipation. You should use them only when necessary. Too-frequent use can make your bowels dependent on them. Some over the counter laxatives available without prescription are: Milk of Magnesia, 1-2 tablespoons twice a day Dulcolax, 5 mg pill or 10 mg suppository. Citrate of Magnesia, 4-5 ounces a day for a day or two For acute constipation, Fleet's Enemas and Dulcolax suppositories are helpful. Chronic, petroleum terminal plant operator use of laxatives or enemas is not a good idea. Your bowel may become dependant on them. You do not need to have a bowel movement every day. Many people do fine with a bowel movement every three or four days. You should call your doctor or return for re-evaluation if you pass blood in the stool, or if you develop fever or increasing abdominal pain. TAKE MIRALAX TWICE DAILY. DRINK PLENTY OF FLUIDS. TRY ADDING MAG CITRATE ONCE DAILY. DO PLENTY OF WALKING. TRY TO AVOID TAKING PAIN MEDICATION, THIS WORSENS THE CONSTIPATION. FOLLOW UP WITH YOUR DOCTOR OR [facility] IF NOT IMPROVING. RETURN TO THE EMERGENCY ROOM IF ANY NEW OR WORSENING SYMPTOMS. Referrals: [facility] [Provider Group] - Follow up as needed Scribe Attestation: 03/01/16 13:14 I personally performed the services described in the documentation, reviewed and edited the documentation which was dictated to the scribe in my presence, and it accurately records my words and actions. (CLIFTON DE LEON) Scribe Documentation - Scribe Written by Selin:: Eufemia Phelps 03/01/2016 [id number] acting as scribe for :: Rainer <EUFEMIA PHELPS - Last Filed: 03/01/16 07:08>
[2016-03-01 07:54] LABS: APPEARANCE,URINE CLEAR; BILIRUBIN,URINE NEGATIVE (NEGATIVE); GLUCOSE, URINE NEGATIVE (NEGATIVE); KETONES,URINE NEGATIVE (NEGATIVE); LEUKOCYTE ESTERASE,URINE NEGATIVE (NEGATIVE); NITRITE,URINE NEGATIVE (NEGATIVE); PROTEIN,URINE NEGATIVE (NEGATIVE); UROBILINOGEN,URINE NEGATIVE mg/dL (<2.0)
[2016-03-01] MEDS ORDERED: MAGNESIUM CITRATE 296 ML BOTTLE PO ONE (08:03)
[2016-03-01] MEDS ORDERED: MINERAL OIL 30 ML UDCUP PR ONE ×2 (08:04→10:35)
[2016-03-01] MEDS ORDERED: FENTANYL CITRATE INJ/PF 100 MCG/2 ML AMPUL ONE (12:11)
[2016-03-01 13:42] VITALS: BP 130/69
== END 2016-03-01 13:42 | disposition home or self-care (01) ==
LOC: ER 05:35
DX: K59.03 Drug induced constipation (principal); T40.2X5A Adverse effect of other opioids, initial encounter; R10.84 Generalized abdominal pain; Z98.890 Other specified postprocedural states; Z88.5 Allergy status to narcotic agent; Z88.8 Allergy status to other drugs, medicaments and biological substances
CPT/HCPCS: 99284; 96361; 96374; 96375; 36415; 83690; 85025; 81025; 80053; 81001; 74022; J3490 ×2; J3010; J2405; J7030

== ENCOUNTER 2016-07-12 12:57 | Inpatient (IN) | payer MEDICAID ==
[2016-07-12] MEDS ORDERED: ONDANSETRON 4 MG TAB.RAPDIS PO ONE (13:42)
--- NOTE | 2016-07-12 13:46 | ER Document Report ---
ED GI/ - General Chief Complaint: Abdominal Pain Stated Complaint: ABDOMINAL PAIN,VOMITING Time Seen by Provider: 07/12/16 13:42 Mode of Arrival: Wheelchair Information source: Patient Notes: 35-year-old female presents to ED for abdominal pain generalized since this morning. She states the pain feels like it is twisting and stretching and twisting and stretching. She states she is vomiting almost constantly since this morning with vomiting up blood. There is no emesis in the back she is holding. She states she just vomited in the bathroom in the waiting room. She states that she had a ventral hernia surgery in March of this year but no other abdominal history. Denies any fevers but states she does have hot and cold. She states she is weak all over. She states she had a BM in the waiting room bathroom which was soft. Had an acute abdomen series and February of this year and a CT of the abdomen and pelvis from December 2015. I have greeted and performed a rapid initial assessment of this patient. A comprehensive ED assessment and evaluation of the patient, analysis of test results and completion of medical decision making process will be conducted by an additional ED providers. TRAVEL OUTSIDE OF THE [place] IN LAST 30 DAYS: No - Related Data Allergies/Adverse Reactions: codeine Allergy (Verified 07/12/16 12:59) diphenhydramine [From Benadryl] Allergy (Verified 07/12/16 12:59) morphine Allergy (Verified 07/12/16 12:59) Past Medical History - Social History Family History: Reviewed & Not Pertinent Patient has suicidal ideation: No Patient has homicidal ideation: No Neurological Medical History: Denies: Hx Seizures Renal/ Medical History: Denies: Hx Peritoneal Dialysis Past Surgical History: Reports: Hx Abdominal Surgery - Ventral Hernia Repair , Hx Section - x2 - Immunizations Immunizations up to date: Yes Hx Diphtheria, Pertussis, Tetanus Vaccination: Yes Physical Exam - Vital signs Vitals: Temp Pulse Resp BP Pulse Ox 98.3 F 56 L 18 129/67 H 100 07/12/16 13:00 07/12/16 13:00 07/12/16 13:00 07/12/16 13:00 07/12/16 13:00 Course - Vital Signs Vital signs: Temp Pulse Resp BP Pulse Ox 97.9 F 53 L 16 127/62 H 100 07/12/16 22:03 07/12/16 22:03 07/12/16 22:03 07/12/16 22:03 07/12/16 22:03 - Laboratory Result Diagrams: 07/12/16 15:45 07/12/16 15:45 Laboratory results interpreted by me: 07/12/16 07/12/16 07/12/16 15:45 15:45 17:50 WBC 21.0 H Hgb 9.5 L Hct 32.4 L MCV 63 L MCH 18.4 L MCHC 29.4 L RDW 21.2 H Plt Count 484 H Seg Neuts % (Manual) 94 H Lymphocytes % (Manual) 3 L Abs Neuts (Manual) 19.7 H Chloride 108 H Carbon Dioxide 21 L BUN 21 H Glucose 129 H Direct Bilirubin 0.7 H Urine Protein 100 H Urine Ketones TRACE H Urine Blood LARGE H Urine Bilirubin SMALL H Urine Urobilinogen 4.0 H Urine Ascorbic Acid 40 H Discharge - Discharge Clinical Impression: Abdominal pain, Colitis, Leukocytosis Condition: Stable Disposition: ADMITTED INPATIENT
[2016-07-12] MEDS ORDERED: HYDROMORPHONE HCL INJ/PF 2 MG/ML AMPULE IV ONE ×2 (14:29→18:37)
--- NOTE | 2016-07-12 15:08 | ER Document Report ---
ED General - General Chief Complaint: Abdominal Pain Stated Complaint: ABDOMINAL PAIN,VOMITING Time Seen by Provider: 07/12/16 13:42 Mode of Arrival: Wheelchair Information source: Patient Notes: 45-year-old female history of a ventral hernia repair in February of this year presents with complaints of abdominal pain. Patient notes she began vomiting multiple times and 3 such episode had bright red blood in it. Patient notes it was streaked with blood, denies any dark or black bowel movements patient denies any fevers or chills states she feels dehydrated from vomiting so much TRAVEL OUTSIDE OF THE [place] IN LAST 30 DAYS: No - HPI Onset: This morning Onset/Duration: Sudden Quality of pain: Burning Severity: Mild Pain Level: 1 Associated symptoms: Nausea, Vomiting Exacerbated by: Denies Relieved by: Denies Similar symptoms previously: Yes Recently seen / treated by doctor: Yes - Related Data Allergies/Adverse Reactions: codeine Allergy (Verified 07/12/16 12:59) diphenhydramine [From Benadryl] Allergy (Verified 07/12/16 12:59) morphine Allergy (Verified 07/12/16 12:59) Past Medical History - General Information source: Patient - Social History Smoking Status: Never Smoker Cigarette use (# per day): No Chew tobacco use (# tins/day): No Smoking Education Provided: No Family History: Reviewed & Not Pertinent Patient has suicidal ideation: No Patient has homicidal ideation: No Neurological Medical History: Denies: Hx Seizures Renal/ Medical History: Denies: Hx Peritoneal Dialysis Past Surgical History: Reports: Hx Abdominal Surgery - Ventral Hernia Repair , Hx Section - x2 - Immunizations Immunizations up to date: Yes Hx Diphtheria, Pertussis, Tetanus Vaccination: Yes Review of Systems - Review of Systems Notes: REVIEW OF SYSTEMS: CONSTITUTIONAL : Denies fever, chills, or sweats. Denies recent illness. EENT: Denies eye, ear, throat, or mouth pain or symptoms. Denies nasal or sinus congestion or discharge. Denies throat, tongue, or mouth swelling or difficulty swallowing. CARDIOVASCULAR: Denies chest pain. Denies palpitations or racing or irregular heart beat. Denies ankle edema. RESPIRATORY: Denies cough, cold, or chest congestion. Denies shortness of breath, difficulty breathing, or wheezing. GASTROINTESTINAL: Abdominal pain nausea vomiting bright red blood GENITOURINARY: Denies difficulty urinating, painful urination, burning, frequency, blood in urine, or discharge. FEMALE GENITOURINARY: Denies vaginal bleeding, heavy or abnormal periods, irregular periods. Denies vaginal discharge or odor. MUSCULOSKELETAL: Denies back or neck pain or stiffness. Denies joint pain or swelling. SKIN: Denies rash, lesions or sores. HEMATOLOGIC : Denies easy bruising or bleeding. LYMPHATIC: Denies swollen, enlarged glands. NEUROLOGICAL: Denies confusion or altered mental status. Denies passing out or loss of consciousness. Denies dizziness or lightheadedness. Denies headache. Denies weakness or paralysis or loss of use of either side. Denies problems with gait or speech. Denies sensory loss, numbness, or tingling. Denies seizures. PSYCHIATRIC: Denies anxiety or stress. Denies depression, suicidal ideation, or homicidal ideation. ALL OTHER SYSTEMS REVIEWED AND NEGATIVE. Dictation was performed using [employer] voice recognition software PHYSICAL EXAMINATION: GENERAL: Well-appearing, well-nourished and in no acute distress. HEAD: Atraumatic, normocephalic. EYES: Pupils equal round and reactive to light, extraocular movements intact, conjunctiva are normal. ENT: Nares patent, oropharynx clear without exudates. Moist mucous membranes. NECK: Normal range of motion, supple without lymphadenopathy LUNGS: Breath sounds clear to auscultation bilaterally and equal. No wheezes rales or rhonchi. HEART: Regular rate and rhythm without murmurs ABDOMEN: Soft, slight tenderness on examination, patient has a dry emesis bag Female : deferred Musculoskeletal: Normal range of motion, no pitting or edema. No cyanosis. NEUROLOGICAL: Cranial nerves grossly intact. Normal speech, normal gait. Normal sensory, motor exams PSYCH: Normal mood, normal affect. SKIN: Warm, Dry, normal turgor, no rashes or lesions noted. Physical Exam - Vital signs Vitals: Temp Pulse Resp BP Pulse Ox 98.3 F 56 L 18 129/67 H 100 07/12/16 13:00 07/12/16 13:00 07/12/16 13:00 07/12/16 13:00 07/12/16 13:00 Course - Re-evaluation Re-evalutation: 07/12/16 15:07 Physical examination notes no significant abnormality, lab work pending acute abdominal series has been ordered, I have very low suspicion for life- threatening issues given patient's current presentation 07/12/16 16:55 07/12/16 16:56 Patient is noted to have an elevated white count, I believe this is secondary to stress pain and vomiting episodes. Otherwise patient looks well is in no significant distress. Patient is sleeping comfortably however she does have an elevated white count CT ordered 07/12/16 20:08 CT was consistent with significant colitis, given that she is quite tender I will have her admitted to the surgeon Dr. douglass for iv antibiotics and pain control - Vital Signs Vital signs: Temp Pulse Resp BP Pulse Ox 98.3 F 56 L 18 129/67 H 100 07/12/16 13:00 07/12/16 13:00 07/12/16 13:00 07/12/16 13:00 07/12/16 13:00 - Laboratory Result Diagrams: 07/12/16 15:45 07/12/16 15:45 Laboratory results interpreted by me: 07/12/16 07/12/16 07/12/16 15:45 15:45 17:50 WBC 21.0 H Hgb 9.5 L Hct 32.4 L MCV 63 L MCH 18.4 L MCHC 29.4 L RDW 21.2 H Plt Count 484 H Seg Neuts % (Manual) 94 H Lymphocytes % (Manual) 3 L Abs Neuts (Manual) 19.7 H Chloride 108 H Carbon Dioxide 21 L BUN 21 H Glucose 129 H Direct Bilirubin 0.7 H Urine Protein 100 H Urine Ketones TRACE H Urine Blood LARGE H Urine Bilirubin SMALL H Urine Urobilinogen 4.0 H Urine Ascorbic Acid 40 H - Diagnostic Test Radiology reviewed: Image reviewed, Reports reviewed - colitis Discharge - Discharge Clinical Impression: Colitis Abdominal pain Qualifiers: Abdominal location: generalized Qualified Code(s): R10.84 - Generalized abdominal pain Leukocytosis Qualifiers: Leukocytosis type: unspecified Qualified Code(s): D72.829 - Elevated white blood cell count, unspecified Condition: Stable Disposition: ADMITTED INPATIENT Admitting Provider: Surgicalist Unit Admitted: Surgical Floor
--- NOTE | 2016-07-12 15:36 | RADIOLOGY REPORT (SQ) ---
EXAM DESCRIPTION: ACUTE ABDOMEN SERIES COMPLETED DATE/TIME: 07/12/2016 3:10 pm REASON FOR STUDY: abd pain vomitng COMPARISON: 03/01/2016 NUMBER OF VIEWS: Three views. TECHNIQUE: PA chest, supine abdomen and upright/decubitus abdomen radiographic images acquired. LIMITATIONS: None. FINDINGS: CHEST: Lungs clear of infiltrates. FREE AIR: None. No abnormal gas collections. BOWEL GAS PATTERN: Few scattered small bowel loops with air fluid levels. No definite distended large or small bowel loops. CALCIFICATIONS: No suspicious calcifications. HARDWARE: None in the abdomen. SOFT TISSUES: No gross mass or suggestion of organomegaly. BONES: No acute fracture. No worrisome bone lesions. OTHER: No other significant finding. IMPRESSION: NONSPECIFIC BOWEL GAS PATTERN. TECHNICAL DOCUMENTATION: JOB ID: [id number] [employer]- All Rights Reserved
[2016-07-12] MEDS: NORMAL SALINE 1000 ML 1,000 ML IV PRN (15:46)
[2016-07-12 16:05] LABS: HEMATOCRIT 32.4 % (36.0-47.0); HEMOGLOBIN 9.5 g/dL (12.0-15.5); HGB HCT DIFFERENCE -3.9; MEAN CORPUSCULAR HEMOGLOBIN 18.4 pg (27.0-33.4); MEAN CORPUSCULAR HGB CONC 29.4 g/dL (32.0-36.0); RED BLOOD COUNT 5.17 10^6/uL (3.72-5.28); RED CELL DISTRIBUTION WIDTH 21.2 % (11.5-14.0)
[2016-07-12 16:18] LABS: BASOPHILS % (MANUAL) 0 % (0-2); EOSINOPHILS % (MANUAL) 0 % (0-6); LYMPHOCYTES % (MANUAL) 3 % (13-45); TOTAL CELLS COUNTED 100
[2016-07-12 16:20] LABS: ANISOCYTOSIS 2+; HYPOCHROMASIA 2+; MICROCYTOSIS 3+; POLYCHROMASIA SLIGHT; TOXIC GRANULATION SLIGHT
[2016-07-12 16:21] LABS: MEAN CORPUSCULAR VOLUME 63 fl (80-97); POIKILOCYTOSIS 1+; STOMATOCYTES SLIGHT
[2016-07-12 16:23] LABS: ALANINE AMINOTRANSFERASE 25 U/L (9-52); ALBUMIN 3.9 g/dL (3.5-5.0); ALKALINE PHOSPHATASE 104 U/L (38-126); ANION GAP 14 (5-19); ASPARTATE AMINO TRANSFERASE 26 U/L (14-36); BILIRUBIN,DIRECT 0.7 mg/dL (0.0-0.4); BILIRUBIN,TOTAL 1.2 mg/dL (0.2-1.3); BLOOD UREA NITROGEN 21 mg/dL (7-20); CALCIUM 9.4 mg/dL (8.4-10.2); CARBON DIOXIDE 21 mmol/L (22-30); CHLORIDE 108 mmol/L (98-107); CREATININE RESULT 0.79 mg/dL (0.52-1.25); GLUCOSE 129 mg/dL (75-110); POTASSIUM 4.3 mmol/L (3.6-5.0); SODIUM 142.9 mmol/L (137-145); TOTAL PROTEIN 7.7 g/dL (6.3-8.2)
--- NOTE | 2016-07-12 18:40 | RADIOLOGY REPORT (SQ) ---
EXAM DESCRIPTION: CT ABD/PELVIS WITH IV ONLY COMPLETED DATE/TIME: 07/12/2016 6:24 pm REASON FOR STUDY: abd pain COMPARISON: 01/09/2016 TECHNIQUE: CT scan of the abdomen and pelvis performed using helical scanning technique with dynamic intravenous contrast injection. No oral contrast. Images reviewed with lung, soft tissue, and bone windows. Reconstructed coronal and sagittal MPR images reviewed. Delayed images for evaluation of the urinary system also acquired. All images stored on PACS. All CT scanners at this facility use dose modulation, iterative reconstruction, and/or weight based d osing when appropriate to reduce radiation dose to as low as reasonably achievable (ALARA). [facility]: Dose Right [facility]: CareDose [facility]: Dose Right [facility]: Teradose 4D [facility]: Hexagram 49 CONTRAST TYPE AND DOSE: 100mL Isovue 370- low osmolar. RENAL FUNCTION: GFR > 60. RADIATION DOSE: 45.30mGy. LIMITATIONS: None. FINDINGS: LOWER CHEST: No significant findings. No nodules or infiltrates. LIVER: Normal size. Stable 7 mm hypervascular lesion left hepatic lobe presumably representing a dafne ign flash filling hemangioma or vascular malformation. No additional masses or dilated ducts. SPLEEN: Normal size. No focal lesions. PANCREAS: No masses. No significant calcifications. No adjacent inflammation or peripancreatic fluid collections. Pancreatic duct not dilated. GALLBLADDER: No identified stones by CT criteria. No inflammatory changes to suggest cholecystitis. ADRENAL GLANDS: Stable left adrenal masses with Hounsfield units measuring less than 10 compatible wi th benign adenomas. RIGHT KIDNEY AND URETER: No solid masses. No significant calcifications. No hydronephrosis or hyd roureter. LEFT KIDNEY AND URETER: No solid masses. No significant calcifications. No hydronephrosis or hydr oureter. AORTA AND VESSELS: No aneurysm. No dissection. Renal arteries, SMA, celiac without stenosis. RETROPERITONEUM: No retroperitoneal adenopathy, hemorrhage or masses. BOWEL AND PERITONEAL CAVITY: Marked inflammatory change involving the rectosigmoid colon similar appe arance to prior study. No pneumatosis or abscess identified. Small and large bowel loops otherwise normal. APPENDIX: Not visualized. PELVIS: No mass or free fluid. Normal bladder. ABDOMINAL WALL: No masses. No hernias. BONES: No significant or acute findings. OTHER: No other significant finding. IMPRESSION: MARKED INFLAMMATORY CHANGE INVOLVING THE RECTOSIGMOID COLON SIMILAR IN APPEARANCE TO [place] OR STUDY IN PRESUMABLY REPRESENTS INFECTIOUS OR INFLAMMATORY COLITIS/PROCTITIS. CORRELATE WITH [facility] HISTORY AND CONSIDER GI CONSULTATION FOR ENDOSCOPIC CORRELATION. STABLE LEFT ADRENAL ADENOMAS. TECHNICAL DOCUMENTATION: JOB ID: [id number] Quality ID # [id number]: Final reports with documentation of one or more dose reduction techniques (e.g., Au tomated exposure control, adjustment of the mA and/or kV according to patient size, use of iterative reconstruction technique) 2010 [email or web address]- All Rights Reserved
[2016-07-12] MEDS ORDERED: NORMAL SALINE 1000 ML 1,000 ML IV ONE (19:01)
[2016-07-12 19:25] LABS: APPEARANCE,URINE SLIGHTLY-CLOUDY; BILIRUBIN,URINE SMALL (NEGATIVE); CALCIUM OXALATE CRYSTALS,URINE MODERATE /HPF; GLUCOSE, URINE NEGATIVE (NEGATIVE); KETONES,URINE TRACE mg/dL (NEGATIVE); LEUKOCYTE ESTERASE,URINE NEGATIVE (NEGATIVE); NITRITE,URINE NEGATIVE (NEGATIVE); PROTEIN,URINE 100 mg/dL (NEGATIVE); URINE SPECIFIC GRAVITY 1.039
[2016-07-12] MEDS: CIPROFLOXACIN 400 MG/D5W RTU 200 ML IV SCH (20:03)
--- NOTE | 2016-07-12 21:05 | PDOC H&P ---
History of Present Illness Admission Date/PCP: 07/12/16 20:34 Patient complains of: Generalized abdominal pain with nausea and vomiting. History of Present Illness: CARMINA HUBER is a 45 year old female who presents with onset of diffuse and generalized abdominal pain with associated vomiting of small amount of blood with food since early today. Patient denies any fever and chills, hematochezia , melena, or coffee ground vomitus. There is no history of any diarrhea, urinary symptoms, or previous episodes. Patient was seen in the emergency room where she was found to have generalized abdominal pain with moderate tenderness , without guarding or rebound. The patient underwent plain abdominal films which were within normal limits, but the CT scan of the abdomen revealed inflammatory changes in the rectosigmoid colon, consistent with moderate colitis of infectious versus inflammatory etiologies. Surgical referral was thus made. Past Medical History Neurological Medical History: Denies: Seizures Past Surgical History Past Surgical History: Reports: Section - x2 Social History Smoking Status: Never Smoker Hx Recreational Drug Use: Yes Hx Prescription Drug Abuse: No Family History Family History: Reviewed & Not Pertinent Parental Family History Reviewed: No - Not applicable Children Family History Reviewed: No - Not applicable Sibling(s) Family History Reviewed.: No - Not applicable Medication/Allergy Home Medications: No Home Medications 02/26/16 Allergies/Adverse Reactions: codeine Allergy (Verified 07/12/16 12:59) diphenhydramine [From Benadryl] Allergy (Verified 07/12/16 12:59) morphine Allergy (Verified 07/12/16 12:59) Physical Exam Vital Signs: Temp Pulse Resp BP Pulse Ox 98.3 F 56 L 18 129/67 H 100 07/12/16 13:00 07/12/16 13:00 07/12/16 13:00 07/12/16 13:00 07/12/16 13:00 General appearance: PRESENT: cooperative, mild distress, well-developed, well- nourished Head exam: PRESENT: atraumatic, normocephalic Eye exam: PRESENT: conjunctiva pink, PERRLA Mouth exam: PRESENT: moist, neck supple, tongue midline. ABSENT: dry mucosa Neck exam: PRESENT: full ROM. ABSENT: carotid bruit, JVD, lymphadenopathy, thyromegaly, tracheal deviation Respiratory exam: PRESENT: clear to auscultation ethan, symmetrical, unlabored Cardiovascular exam: PRESENT: RRR. ABSENT: tachycardia Vascular exam: PRESENT: normal capillary refill GI/Abdominal exam: PRESENT: diminished bowel sounds, soft, tenderness. ABSENT: guarding, organolmegaly, rebound Rectal exam: PRESENT: deferred Skin exam: PRESENT: normal color, warm Results Impressions: Acute Abdomen Series 07/12/16 14:29 IMPRESSION: NONSPECIFIC BOWEL GAS PATTERN. Abdomen/Pelvis CT 07/12/16 16:55 IMPRESSION: MARKED INFLAMMATORY CHANGE INVOLVING THE RECTOSIGMOID COLON SIMILAR IN APPEARANCE TO PRIOR STUDY IN PRESUMABLY REPRESENTS INFECTIOUS OR INFLAMMATORY COLITIS/PROCTITIS. CORRELATE WITH CLINICAL HISTORY AND CONSIDER GI CONSULTATION FOR ENDOSCOPIC CORRELATION. STABLE LEFT ADRENAL ADENOMAS. Assessment & Plan - Plan Summary Plan Summary: Patient will be admitted for IV fluids, IV antibiotics, parenteral analgesics. Colonoscopy will be delayed until her symptoms improve. Should she not improve with the after mentioned therapies, then colonoscopy will be considered during this admission.
[2016-07-12] MEDS ORDERED: DEXTROSE 5%-LACTATED RINGERS 1,000 ML IV PRN (21:06)
[2016-07-12] MEDS ORDERED: ONDANSETRON HCL INJ/PF 4 MG/2 ML SDV IV PRN (21:10)
[2016-07-12] MEDS ORDERED: MORPHINE SULFATE 10 MG/ML INJ IV PRN (21:10)
[2016-07-12] MEDS ORDERED: ENOXAPARIN SODIUM INJ 40 MG/0.4 ML DISP.SYRIN SUBCUT ONE (22:00)
--- NOTE | 2016-07-12 22:46 | ER Document Report ---
ED Medical Screen (RME) - General Chief Complaint: Abdominal Pain Stated Complaint: ABDOMINAL PAIN,VOMITING Time Seen by Provider: 07/12/16 13:42 Mode of Arrival: Wheelchair Notes: This patient was seen as a pit patient at 1342. This is a 35-year-old female presented to ED for abdominal pain generalized since this morning she stated that feels like a twisting stretching. She stated that she has been vomiting almost constantly since morning and that she had some blood in the vomit. There is no emesis in the bag at the time of this assessment. She states she vomited just before coming to the exam room. She states she had a ventral hernia surgery in March of this year and had no other abdominal history. She denies any fevers but states she has hot and cold flashes. She states she is weak all over. She states she had a BM in the waiting room which was soft. Patient had an acute abdomen series in February of this year and a CT abdomen and pelvis from December 2015. I have greeted and performed a rapid initial assessment of this patient. A comprehensive ED assessment and evaluation of the patient, analysis of test results and completion of medical decision making process will be conducted by an additional ED providers. TRAVEL OUTSIDE OF THE [place] IN LAST 30 DAYS: No - Related Data Allergies/Adverse Reactions: codeine Allergy (Verified 07/12/16 12:59) diphenhydramine [From Benadryl] Allergy (Verified 07/12/16 12:59) morphine Allergy (Verified 07/12/16 12:59) Past Medical History - Social History Cigarette use (# per day): No Chew tobacco use (# tins/day): No Neurological Medical History: Denies: Hx Seizures Renal/ Medical History: Denies: Hx Peritoneal Dialysis Past Surgical History: Reports: Hx Abdominal Surgery - Ventral Hernia Repair , Hx Section - x2 - Immunizations Immunizations up to date: Yes Hx Diphtheria, Pertussis, Tetanus Vaccination: Yes Physical Exam - Vital signs Vitals: Temp Pulse Resp BP Pulse Ox 98.3 F 56 L 18 129/67 H 100 07/12/16 13:00 07/12/16 13:00 07/12/16 13:00 07/12/16 13:00 07/12/16 13:00 Course - Vital Signs Vital signs: Temp Pulse Resp BP Pulse Ox 97.9 F 53 L 16 127/62 H 100 07/12/16 22:03 07/12/16 22:03 07/12/16 22:03 07/12/16 22:03 07/12/16 22:03 - Laboratory Result Diagrams: 07/12/16 15:45 07/12/16 15:45 Laboratory results interpreted by me: 07/12/16 07/12/16 07/12/16 15:45 15:45 17:50 WBC 21.0 H Hgb 9.5 L Hct 32.4 L MCV 63 L MCH 18.4 L MCHC 29.4 L RDW 21.2 H Plt Count 484 H Seg Neuts % (Manual) 94 H Lymphocytes % (Manual) 3 L Abs Neuts (Manual) 19.7 H Chloride 108 H Carbon Dioxide 21 L BUN 21 H Glucose 129 H Direct Bilirubin 0.7 H Urine Protein 100 H Urine Ketones TRACE H Urine Blood LARGE H Urine Bilirubin SMALL H Urine Urobilinogen 4.0 H Urine Ascorbic Acid 40 H Doctor's Discharge - Discharge Clinical Impression: Colitis Abdominal pain Qualifiers: Abdominal location: generalized Qualified Code(s): R10.84 - Generalized abdominal pain Leukocytosis Qualifiers: Leukocytosis type: unspecified Qualified Code(s): D72.829 - Elevated white blood cell count, unspecified Condition: Stable Disposition: ADMITTED INPATIENT
[2016-07-12] MEDS: FAMOTIDINE 20 MG TABLET PO SCH (23:23)
[2016-07-12] MEDS: METRONIDAZOLE 500 MG/NS RTU 100 ML IV SCH (23:25)
[2016-07-12] MEDS: HYDROMORPHONE HCL INJ/PF 2 MG/ML AMPULE IV PRN (23:51)
[2016-07-13] MEDS: METRONIDAZOLE 500 MG/NS RTU 100 ML IV SCH ×3 (06:41→22:03)
[2016-07-13] MEDS: HYDROMORPHONE HCL INJ/PF 2 MG/ML AMPULE IV PRN ×4 (06:42→16:50)
[2016-07-13] MEDS: ENOXAPARIN SODIUM INJ 40 MG/0.4 ML DISP.SYRIN SUBCUT SCH (08:45)
[2016-07-13] MEDS: FAMOTIDINE 20 MG TABLET PO SCH ×2 (10:01→22:02)
[2016-07-13] MEDS: CIPROFLOXACIN 400 MG/D5W RTU 200 ML IV SCH ×2 (10:46→22:06)
--- NOTE | 2016-07-13 21:59 | PDOC PROGRESS REPORT ---
Subjective Progress Note for:: 07/13/16 Subjective:: Patient is feeling better, passing gas, and want to be weaned off Dilaudid. Physical Exam Vital Signs: Temp Pulse Resp BP Pulse Ox 97.8 F 66 16 122/93 H 100 07/13/16 20:24 07/13/16 20:24 07/13/16 20:24 07/13/16 20:24 07/13/16 20:24 GI/Abdominal exam: PRESENT: normal bowel sounds. ABSENT: tenderness Results Impressions: Acute Abdomen Series 07/12/16 14:29 IMPRESSION: NONSPECIFIC BOWEL GAS PATTERN. Abdomen/Pelvis CT 07/12/16 16:55 IMPRESSION: MARKED INFLAMMATORY CHANGE INVOLVING THE RECTOSIGMOID COLON SIMILAR IN APPEARANCE TO PRIOR STUDY IN PRESUMABLY REPRESENTS INFECTIOUS OR INFLAMMATORY COLITIS/PROCTITIS. CORRELATE WITH CLINICAL HISTORY AND CONSIDER GI CONSULTATION FOR ENDOSCOPIC CORRELATION. STABLE LEFT ADRENAL ADENOMAS. Assessment & Plan - Plan Summary Plan Summary: We will advance diet, wean off Dilaudid, start Percocet, and taper IV fluids. Anticipate discharge planning for the a.m.
[2016-07-13] MEDS: OXYCODONE-ACETAMINOPHEN 5-325 MG TABLET PO PRN (22:01)
[2016-07-14] MEDS: KETOROLAC TROMETHAMINE INJ/PF 30 MG/1 ML SDV IV PRN ×3 (00:56→21:24)
[2016-07-14] MEDS: OXYCODONE-ACETAMINOPHEN 5-325 MG TABLET PO PRN ×5 (01:48→20:05)
[2016-07-14] MEDS: METRONIDAZOLE 500 MG/NS RTU 100 ML IV SCH ×3 (05:06→23:46)
[2016-07-14] MEDS: ENOXAPARIN SODIUM INJ 40 MG/0.4 ML DISP.SYRIN SUBCUT SCH (08:25)
[2016-07-14] MEDS: FAMOTIDINE 20 MG TABLET PO SCH ×2 (09:30→21:24)
[2016-07-14] MEDS: CIPROFLOXACIN 400 MG/D5W RTU 200 ML IV SCH (09:31)
--- NOTE | 2016-07-14 10:27 | PDOC PROGRESS REPORT ---
Subjective Progress Note for:: 07/14/16 Physical Exam Vital Signs: Temp Pulse Resp BP Pulse Ox 97.8 F 65 16 114/57 L 100 07/14/16 07:42 07/14/16 07:42 07/14/16 07:42 07/14/16 07:42 07/14/16 07:42 GI/Abdominal exam: PRESENT: normal bowel sounds, soft. ABSENT: distended, guarding, rebound, tenderness Results Impressions: Acute Abdomen Series 07/12/16 14:29 IMPRESSION: NONSPECIFIC BOWEL GAS PATTERN. Abdomen/Pelvis CT 07/12/16 16:55 IMPRESSION: MARKED INFLAMMATORY CHANGE INVOLVING THE RECTOSIGMOID COLON SIMILAR IN APPEARANCE TO PRIOR STUDY IN PRESUMABLY REPRESENTS INFECTIOUS OR INFLAMMATORY COLITIS/PROCTITIS. CORRELATE WITH CLINICAL HISTORY AND CONSIDER GI CONSULTATION FOR ENDOSCOPIC CORRELATION. STABLE LEFT ADRENAL ADENOMAS. Assessment & Plan - Plan Summary Plan Summary: Will continue antibiotics, anti-emetics and analgesics. The patient is tolerating regular diet well. The patient will ultimately need a colonoscopy as an outpatient. Will repeat CBC.
[2016-07-14 12:44] LABS: ABSOLUTE BASOPHILS # (AUTO) 0.1 10^3/uL (0.0-0.2); ABSOLUTE EOSINOPHILS # (AUTO) 0.2 10^3/uL (0.0-0.6); ABSOLUTE LYMPHOCYTES (AUTO) 1.5 10^3/uL (0.5-4.7); ABSOLUTE MONOCYTES (AUTO) 0.6 10^3/uL (0.1-1.4); ABSOLUTE NEUT (AUTO) 5.8 10^3/uL (1.7-8.2); BASOPHILS % (AUTO) 0.9 % (0-2); EOSINOPHILS % (AUTO) 2.2 % (0-6); HEMATOCRIT 23.8 % (36.0-47.0); HGB HCT DIFFERENCE -2.5; LYMPHOCYTES % (AUTO) 18.3 % (13-45); MEAN CORPUSCULAR HEMOGLOBIN 18.9 pg (27.0-33.4); MEAN CORPUSCULAR HGB CONC 29.6 g/dL (32.0-36.0); MEAN CORPUSCULAR VOLUME 64 fl (80-97); MONOCYTES % (AUTO) 7.3 % (3-13); RED BLOOD COUNT 3.74 10^6/uL (3.72-5.28); RED CELL DISTRIBUTION WIDTH 20.8 % (11.5-14.0); SEGMENTED NEUTROPHILS % (AUTO) 71.3 % (42-78); WHITE BLOOD COUNT 8.2 10^3/uL (4.0-10.5)
[2016-07-14 12:54] LABS: ANISOCYTOSIS 2+; HYPOCHROMASIA 2+; MICROCYTOSIS 3+; PLATELET CLUMPS PRESENT; POLYCHROMASIA SLIGHT
[2016-07-14 12:57] LABS: HEMOGLOBIN 7.1 g/dL (12.0-15.5)
[2016-07-14] MEDS ORDERED: OXYCODONE-ACETAMINOPHEN 5-325 MG TABLET PO PRN (15:18)
[2016-07-14] MEDS ORDERED: PEG 3350/NA SULF,BICARB,CL/KCL 4000 ML PO ONE (17:00)
[2016-07-14] MEDS: NORMAL SALINE 1000 ML 1,000 ML IV PRN (23:56)
[2016-07-15] MEDS: OXYCODONE-ACETAMINOPHEN 5-325 MG TABLET PO PRN ×5 (00:34→20:26)
[2016-07-15] MEDS: CIPROFLOXACIN 400 MG/D5W RTU 200 ML IV SCH ×2 (01:18→12:44)
[2016-07-15] MEDS: METRONIDAZOLE 500 MG/NS RTU 100 ML IV SCH ×2 (06:02→17:21)
[2016-07-15 07:43] LABS: HEMATOCRIT 28.4 % (36.0-47.0); HEMOGLOBIN 8.6 g/dL (12.0-15.5); HGB HCT DIFFERENCE -2.6; MEAN CORPUSCULAR HEMOGLOBIN 20.1 pg (27.0-33.4); MEAN CORPUSCULAR HGB CONC 30.4 g/dL (32.0-36.0); MEAN CORPUSCULAR VOLUME 66 fl (80-97); RED BLOOD COUNT 4.29 10^6/uL (3.72-5.28); WHITE BLOOD COUNT 8.1 10^3/uL (4.0-10.5)
[2016-07-15] MEDS ORDERED: ONDANSETRON HCL INJ/PF 4 MG/2 ML SDV ONE (09:47)
[2016-07-15] MEDS ORDERED: NALOXONE HCL INJ/PF 0.4 MG/1 ML SDV ONE (09:48)
[2016-07-15] MEDS ORDERED: GLYCOPYRROLATE INJ 0.4 MG/2 ML VIAL ONE (09:48)
[2016-07-15] MEDS ORDERED: FLUMAZENIL INJ 0.5 MG/5 ML VIAL IV ONE (09:48)
[2016-07-15] MEDS ORDERED: GLUCAGON,HUMAN RECOMB 1 MG INJ ONE (09:49)
[2016-07-15] MEDS ORDERED: EPINEPHRINE INJ 1 MG/10 ML DISP.SYRIN ONE (09:49)
[2016-07-15] MEDS: MIDAZOLAM 2 MG/2 ML INJ ONE ×3 (10:12→10:24)
[2016-07-15] MEDS: FENTANYL CITRATE INJ/PF 100 MCG/2 ML AMPUL ONE ×2 (10:14→10:25)
--- NOTE | 2016-07-15 11:23 | OPERATIVE REPORT E ---
Operative Report NAME: CARMINA HUBER : 1970 AGE: 45Y DATE OF SURGERY: 07/15/2016 ROOM: 208 PREOPERATIVE DIAGNOSIS: 1. Rectal bleeding. 2. Rectosigmoid inflammation. POSTOPERATIVE DIAGNOSIS: 1. Rectal bleeding. 2. Rectosigmoid inflammation. 3. Circumferential obstructing rectal carcinoma. OPERATION: 1. Limited colonoscopy to the rectum. 2. Multiple biopsies of upper rectal tumor. SURGEON: JESSICA VASQUEZ M.D. ANESTHESIA: IV sedation. COMPLICATIONS: None. ESTIMATED BLOOD LOSS: Minimal. DRAINS: None. TISSUE REMOVED OR ALTERED: Mucosal biopsies described below. PROCEDURE: After obtaining informed consent, the patient was taken to the endoscopy suite fifth floor [facility], placed on semirecumbent position knees to chest left lateral decubitus. Surgical plan and surgical time-out conducted. Appropriate level of conscious sedation was induced. A rectal exam was performed. There was no visible or palpable anorectal pathology. There was some blood and mucus exuding from the anal opening. The flexible adult colonoscope was advanced through the anal canal. There was a significant amount of stool which washed out reasonably well. We advanced the scope to approximately 15 cm from the anal verge and encountered an obstructing circumferential fungating mass consistent with tumor. An attempt was made to traverse the tumor but was unsuccessful. The adult scope was removed from the patient's anus. We brought a pediatric colonoscope onto the field and performed the same procedure. Again, the lumen could be seen in the center of the tumor and I was able to insinuate the scope through part of the tumor but not all the way through the tumor, so I was not able to evaluate the colon proximal to the malignancy. Two additional biopsies were performed with the cold forceps device. All of the specimens were placed in one container and labeled circumferential rectal tumor. Scope was withdrawn from the patient's anus. She tolerated the procedure well. PLAN: 1. Check CEA level. 2. Obtain oncologic evaluation. 3. Clear liquids. 4. Discuss findings with the patient and patient's family. DICTATING PHYSICIAN: JESSICA VASQUEZ M.D. [id number] PHY#: [id number] ID: [id number] JOB#: [id number] ACCT: [id number] cc:JESSICA VASQUEZ M.D. >
[2016-07-15] MEDS: KETOROLAC TROMETHAMINE INJ/PF 30 MG/1 ML SDV IV PRN ×2 (11:46→20:57)
[2016-07-15] MEDS: FAMOTIDINE 20 MG TABLET PO SCH ×2 (12:43→21:50)
[2016-07-15] MEDS: ENOXAPARIN SODIUM INJ 40 MG/0.4 ML DISP.SYRIN SUBCUT SCH (12:45)
--- NOTE | 2016-07-15 17:06 | PDOC CONSULTATION ---
Consultation Consult Date: 07/15/16 Attending physician:: JESSICA VASQUEZ Consult reason:: Rectal mass, anemia History of Present Illness Admission Date/PCP: 07/12/16 21:06 Patient complains of: rectal mass History of Present Illness: 45-year-old female who presents with a two-month to three-month history of increasing bloating, increasing difficulty with constipation, black stools at times, poor p.o. intake, she tells me she has lost a total of [address] imaging indicated rectal thickening, she had colonoscopy done today which indicated a large mass in the upper rectum at the rectosigmoid junction at 15 cm. She has never had a colonoscopy in the past, she has not really had much of any medical care, she has had a hernia repair recently. CT of the abdomen pelvis does not indicate any distant disease, only the rectal thickening, CT of the chest is pending, CEA was normal. Past Medical History Neurological Medical History: Denies: Seizures Hematology: Reports: Anemia Past Surgical History Past Surgical History: Reports: Section - x2, Herniorrhaphy Denies: Hysterectomy Social History Information Source: Patient Smoking Status: Current Every Day Smoker Cigarettes Packs Per Day: 0.5 Number of Years Smokin Last Time Smoked: 12 pm this afternoon Frequency of Alcohol Use: None Hx Recreational Drug Use: No Drugs: None Hx Prescription Drug Abuse: No - Advance Directive Resuscitation Status: Full Code Family History Family History: Reviewed & Not Pertinent Parental Family History Reviewed: Yes Children Family History Reviewed: Yes Sibling(s) Family History Reviewed.: Yes Medication/Allergy Home Medications: No Home Medications 02/26/16 Allergies/Adverse Reactions: codeine Allergy (Verified 07/12/16 12:59) diphenhydramine [From Benadryl] Allergy (Verified 07/12/16 12:59) morphine Allergy (Verified 07/12/16 12:59) Review of Systems Constitutional: PRESENT: anorexia, fatigue, weakness Gastrointestinal: PRESENT: bloating, constipation, hematochezia Musculoskeletal: ABSENT: joint swelling Neurological: ABSENT: abnormal gait, abnormal speech, confusion, dizziness, focal weakness, syncope Hematologic/Lymphatic: ABSENT: easy bleeding, easy bruising Physical Exam Vital Signs: Temp Pulse Resp BP Pulse Ox 97.7 F 68 18 135/73 H 100 07/15/16 15:59 07/15/16 15:59 07/15/16 15:59 07/15/16 15:59 07/15/16 15:59 Intake & Output 07/14/16 07/15/16 07/16/16 06:59 06:59 06:59 Intake Total 64 525 Balance 64 525 Weight 112.5 kg General appearance: PRESENT: no acute distress, well-developed, well-nourished Head exam: PRESENT: atraumatic, normocephalic Eye exam: PRESENT: conjunctiva pink, EOMI, PERRLA. ABSENT: scleral icterus Ear exam: PRESENT: normal external ear exam Mouth exam: PRESENT: moist, tongue midline Neck exam: ABSENT: carotid bruit, JVD, lymphadenopathy, thyromegaly Respiratory exam: PRESENT: clear to auscultation ethan. ABSENT: rales, rhonchi, wheezes Cardiovascular exam: PRESENT: RRR. ABSENT: diastolic murmur, rubs, systolic murmur Pulses: PRESENT: normal dorsalis pedis pul Vascular exam: PRESENT: normal capillary refill GI/Abdominal exam: PRESENT: normal bowel sounds, soft. ABSENT: distended, guarding, mass, organolmegaly, rebound, tenderness Rectal exam: PRESENT: deferred Extremities exam: PRESENT: full ROM. ABSENT: calf tenderness, clubbing, pedal edema Neurological exam: PRESENT: alert, awake, oriented to person, oriented to place , oriented to time, oriented to situation, CN II-XII grossly intact. ABSENT: motor sensory deficit Psychiatric exam: PRESENT: appropriate affect, normal mood. ABSENT: homicidal ideation, suicidal ideation Skin exam: PRESENT: dry, intact, warm. ABSENT: cyanosis, rash Results Laboratory Results: 07/15/16 07:32 07/14/16 07/15/16 12:18 07:32 WBC 8.1 RBC 4.29 Hgb 8.6 L Hct 28.4 L MCV 66 L MCH 20.1 L MCHC 30.4 L RDW 23.0 H Plt Count 319 Blood Type A POSITIVE Antibody Screen NEGATIVE Impressions: Acute Abdomen Series 07/12/16 14:29 IMPRESSION: NONSPECIFIC BOWEL GAS PATTERN. Abdomen/Pelvis CT 07/12/16 16:55 IMPRESSION: MARKED INFLAMMATORY CHANGE INVOLVING THE RECTOSIGMOID COLON SIMILAR IN APPEARANCE TO PRIOR STUDY IN PRESUMABLY REPRESENTS INFECTIOUS OR INFLAMMATORY COLITIS/PROCTITIS. CORRELATE WITH CLINICAL HISTORY AND CONSIDER GI CONSULTATION FOR ENDOSCOPIC CORRELATION. STABLE LEFT ADRENAL ADENOMAS. Status: Image reviewed by me Assessment & Plan - Diagnosis (1) Rectal adenocarcinoma Is this a current diagnosis for this admission?: YesPlan: It does appear that she has a primary rectal cancer, CT of the chest is pending , the standard approach next would be consideration of concurrent chemoradiation and primary surgery. However, she may require diverting colostomy even prior to that because she is having a lot of difficulty passing stool, general surgery could not pass the pediatric colonoscope, it would be a difficult situation to give her chemoradiation without inability for her to pass stool, nutrition would be a major issue for her. I will discuss this further with general surgery. We await further workup. - Time Time Spent: Greater than 70 Minutes Critical Time spent with patient: 35 or more minutes - Inpatient Certification Based on my medical assessment, after consideration of the patient's comorbidities, presenting symptoms, or acuity I expect that the services needed warrant INPATIENT care.: Yes I certify that my determination is in accordance with my understanding of Medicare's requirements for reasonable and necessary INPATIENT services [42 CFR 412.3e].: Yes
[2016-07-15 18:07] LABS: PATH REVIEW PATHOLOGIST REVIEWED
--- NOTE | 2016-07-15 18:58 | RADIOLOGY REPORT (SQ) ---
EXAM DESCRIPTION: CT CHEST WITH COMPLETED DATE/TIME: 07/15/2016 5:47 pm REASON FOR STUDY: r/o metastatic disease COMPARISON: None. TECHNIQUE: CT scan of the chest performed using helical scanning technique with dynamic intravenous contrast injection. Images reviewed with lung, soft tissue and bone windows. Reconstructed coronal and sagittal MPR images reviewed. All images stored on PACS. All CT scanners at this facility use dose modulation, iterative reconstruction, and/or weight based d osing when appropriate to reduce radiation dose to as low as reasonably achievable (ALARA). [facility]: Dose Right [facility]: CareDose [facility]: Dose Right [facility]: Teradose 4D [facility]: Haier CONTRAST TYPE AND DOSE: 80mL Isovue 370- low osmolar. RENAL FUNCTION: Creatinine 0.8 BUN 21 RADIATION DOSE: 18.19 mGy. LIMITATIONS: None. FINDINGS: LUNGS AND PLEURA: No opacities, nodules, masses. No pneumothorax. No effusions. HILAR AND MEDIASTINAL STRUCTURES: No identified masses or abnormal nodes. HEART AND VASCULAR STRUCTURES: No aneurysm or dissection. No central pulmonary emboli. No pericardi al effusion. HARDWARE: None in the chest. UPPER ABDOMEN: There is a lobulated low-density left adrenal nodule. This measures 53 x 28 mm on robin ge 57. THYROID AND OTHER SOFT TISSUES: No masses. No adenopathy. BONES: No significant finding. OTHER: No other significant finding. IMPRESSION: 1. No metastases are seen in the thorax. 2. There is a large low-density left adrenal nodule suggestive of an adenoma. TECHNICAL DOCUMENTATION: JOB ID: [id number] Quality ID # [id number]: Final reports with documentation of one or more dose reduction techniques (e.g., Au tomated exposure control, adjustment of the mA and/or kV according to patient size, use of iterative reconstruction technique) 2010 [employer]- All Rights Reserved
[2016-07-16] MEDS: OXYCODONE-ACETAMINOPHEN 5-325 MG TABLET PO PRN ×6 (00:34→22:52)
[2016-07-16] MEDS: KETOROLAC TROMETHAMINE INJ/PF 30 MG/1 ML SDV IV PRN ×2 (06:09→16:35)
--- NOTE | 2016-07-16 08:41 | PDOC PROGRESS REPORT ---
Subjective Progress Note for:: 07/16/16 Subjective:: No acute events overnight, CT of the chest was negative for disease, had long discussion with general surgery, option would be primary diverting colostomy versus primary resection with possibly LAR, this decision will be made at a tertiary center, plan to transfer to [place] under the care of most likely Dr. Abdi, general surgery is contacting them today. Today I had a long discussion with patient. Physical Exam Vital Signs: Temp Pulse Resp BP Pulse Ox 98.5 F 59 L 20 114/72 97 07/16/16 07:42 07/16/16 07:42 07/16/16 07:42 07/16/16 07:42 07/16/16 07:42 Intake & Output 07/15/16 07/16/16 07/17/16 06:59 06:59 06:59 Intake Total 664 1365 Balance 664 1365 Weight 112.5 kg General appearance: PRESENT: no acute distress, well-developed, well-nourished Head exam: PRESENT: atraumatic, normocephalic Eye exam: PRESENT: conjunctiva pink, EOMI, PERRLA. ABSENT: scleral icterus Ear exam: PRESENT: normal external ear exam Mouth exam: PRESENT: moist, tongue midline Neck exam: ABSENT: carotid bruit, JVD, lymphadenopathy, thyromegaly Respiratory exam: PRESENT: clear to auscultation ethan. ABSENT: rales, rhonchi, wheezes Cardiovascular exam: PRESENT: RRR. ABSENT: diastolic murmur, rubs, systolic murmur Pulses: PRESENT: normal dorsalis pedis pul Vascular exam: PRESENT: normal capillary refill GI/Abdominal exam: PRESENT: normal bowel sounds, soft. ABSENT: distended, guarding, mass, organolmegaly, rebound, tenderness Rectal exam: PRESENT: deferred Extremities exam: PRESENT: full ROM. ABSENT: calf tenderness, clubbing, pedal edema Neurological exam: PRESENT: alert, awake, oriented to person, oriented to place , oriented to time, oriented to situation, CN II-XII grossly intact. ABSENT: motor sensory deficit Psychiatric exam: PRESENT: appropriate affect, normal mood. ABSENT: homicidal ideation, suicidal ideation Skin exam: PRESENT: dry, intact, warm. ABSENT: cyanosis, rash Results Laboratory Results: 07/15/16 07:32 07/14/16 12:18 Blood Type A POSITIVE Antibody Screen NEGATIVE Impressions: Acute Abdomen Series 07/12/16 14:29 IMPRESSION: NONSPECIFIC BOWEL GAS PATTERN. Abdomen/Pelvis CT 07/12/16 16:55 IMPRESSION: MARKED INFLAMMATORY CHANGE INVOLVING THE RECTOSIGMOID COLON SIMILAR IN APPEARANCE TO PRIOR STUDY IN PRESUMABLY REPRESENTS INFECTIOUS OR INFLAMMATORY COLITIS/PROCTITIS. CORRELATE WITH CLINICAL HISTORY AND CONSIDER GI CONSULTATION FOR ENDOSCOPIC CORRELATION. STABLE LEFT ADRENAL ADENOMAS. Chest CT 07/15/16 00:00 IMPRESSION: 1. No metastases are seen in the thorax. 2. There is a large low-density left adrenal nodule suggestive of an adenoma. Assessment & Plan - Diagnosis (1) Rectal adenocarcinoma Is this a current diagnosis for this admission?: YesPlan: Awaiting biopsy butLooks to be a primary rectal cancer, no further staging needed right now other than transrectal ultrasound possibly. This will be done in [place]. We can certainly take over care after she had surgical evaluation there. - Time Time Spent with patient: 35 or more minutes Critical Time spent with patient: 35 or more minutes - Inpatient Certification Based on my medical assessment, after consideration of the patient's comorbidities, presenting symptoms, or acuity I expect that the services needed warrant INPATIENT care.: Yes I certify that my determination is in accordance with my understanding of Medicare's requirements for reasonable and necessary INPATIENT services [42 CFR 412.3e].: Yes Medical Necessity: Need for Surgery
[2016-07-16] MEDS: FAMOTIDINE 20 MG TABLET PO SCH ×2 (09:28→22:52)
[2016-07-16] MEDS: ENOXAPARIN SODIUM INJ 40 MG/0.4 ML DISP.SYRIN SUBCUT SCH (09:47)
--- NOTE | 2016-07-16 16:13 | PDOC PROGRESS REPORT ---
Subjective Progress Note for:: 07/16/16 Subjective:: Pt. is w/o c/o. Has no n/v, or abd. pain. Physical Exam Vital Signs: Temp Pulse Resp BP Pulse Ox 98.6 F 64 18 139/68 H 99 07/16/16 11:40 07/16/16 11:40 07/16/16 11:40 07/16/16 11:40 07/16/16 11:40 Intake & Output 07/15/16 07/16/16 07/17/16 06:59 06:59 06:59 Intake Total 664 1365 Balance 664 1365 Weight 112.5 kg 110.9 kg Respiratory exam: PRESENT: clear to auscultation ethan Cardiovascular exam: PRESENT: RRR GI/Abdominal exam: PRESENT: normal bowel sounds, soft. ABSENT: rebound, tenderness Rectal exam: PRESENT: deferred Results Laboratory Results: 07/15/16 07:32 07/14/16 12:18 Blood Type A POSITIVE Antibody Screen NEGATIVE Impressions: Acute Abdomen Series 07/12/16 14:29 IMPRESSION: NONSPECIFIC BOWEL GAS PATTERN. Abdomen/Pelvis CT 07/12/16 16:55 IMPRESSION: MARKED INFLAMMATORY CHANGE INVOLVING THE RECTOSIGMOID COLON SIMILAR IN APPEARANCE TO PRIOR STUDY IN PRESUMABLY REPRESENTS INFECTIOUS OR INFLAMMATORY COLITIS/PROCTITIS. CORRELATE WITH CLINICAL HISTORY AND CONSIDER GI CONSULTATION FOR ENDOSCOPIC CORRELATION. STABLE LEFT ADRENAL ADENOMAS. Chest CT 07/15/16 00:00 IMPRESSION: 1. No metastases are seen in the thorax. 2. There is a large low-density left adrenal nodule suggestive of an adenoma. Assessment & Plan - Diagnosis (3) Rectal adenocarcinoma Is this a current diagnosis for this admission?: Yes - Plan Summary Plan Summary: Transfer to [facility] for possible LAR vs. Diversion with neoadjuvant chemoradiation therapy. Patient is presently obstructed, although she has no n/v/or abd. distension.
[2016-07-16] MEDS: MAG HYDROX/AL HYDROX/SIMETH SUSP 30 ML UDCUP PO SCH ×2 (18:36→22:52)
[2016-07-17] MEDS: OXYCODONE-ACETAMINOPHEN 5-325 MG TABLET PO PRN ×3 (03:33→13:29)
[2016-07-17] MEDS: ENOXAPARIN SODIUM INJ 40 MG/0.4 ML DISP.SYRIN SUBCUT SCH (07:39)
--- NOTE | 2016-07-17 08:34 | PDOC PROGRESS REPORT ---
Subjective Progress Note for:: 07/17/16 Subjective:: No acute events overnight. Pt is to either transfer out to [facility] or possibly d/ c home and f/u as outpt. Either way, surgical decision needed before proceeding w/ chemo/xrt. Likely will either need primary resection vs diverting colostomy, pt is not passing any stool at present Physical Exam Vital Signs: Temp Pulse Resp BP Pulse Ox 97.8 F 66 20 103/60 97 07/17/16 03:21 07/17/16 03:21 07/17/16 03:21 07/17/16 03:21 07/17/16 03:21 Intake & Output 07/16/16 07/17/16 07/18/16 06:59 06:59 06:59 Intake Total 1365 1940 Balance 1365 1940 Weight 112.5 kg 111.4 kg Results Laboratory Results: 07/15/16 07:32 Impressions: Acute Abdomen Series 07/12/16 14:29 IMPRESSION: NONSPECIFIC BOWEL GAS PATTERN. Abdomen/Pelvis CT 07/12/16 16:55 IMPRESSION: MARKED INFLAMMATORY CHANGE INVOLVING THE RECTOSIGMOID COLON SIMILAR IN APPEARANCE TO PRIOR STUDY IN PRESUMABLY REPRESENTS INFECTIOUS OR INFLAMMATORY COLITIS/PROCTITIS. CORRELATE WITH CLINICAL HISTORY AND CONSIDER GI CONSULTATION FOR ENDOSCOPIC CORRELATION. STABLE LEFT ADRENAL ADENOMAS. Chest CT 07/15/16 00:00 IMPRESSION: 1. No metastases are seen in the thorax. 2. There is a large low-density left adrenal nodule suggestive of an adenoma. Assessment & Plan - Diagnosis (1) Rectal adenocarcinoma Is this a current diagnosis for this admission?: YesPlan: As above, f/u will happen once surgical decision made. - Time Time Spent with patient: 15-24 minutes Critical Time spent with patient: 15-24 minutes - Inpatient Certification Based on my medical assessment, after consideration of the patient's comorbidities, presenting symptoms, or acuity I expect that the services needed warrant INPATIENT care.: Yes I certify that my determination is in accordance with my understanding of Medicare's requirements for reasonable and necessary INPATIENT services [42 CFR 412.3e].: Yes Medical Necessity: Need for Surgery
[2016-07-17] MEDS: MAG HYDROX/AL HYDROX/SIMETH SUSP 30 ML UDCUP PO SCH ×2 (09:06→13:28)
[2016-07-17] MEDS: FAMOTIDINE 20 MG TABLET PO SCH (09:12)
[2016-07-17] MEDS: KETOROLAC TROMETHAMINE INJ/PF 30 MG/1 ML SDV IV PRN (09:21)
--- NOTE | 2016-07-17 11:25 | PDOC PROGRESS REPORT ---
Subjective Progress Note for:: 07/17/16 Subjective:: Pt. wants to be discharged by this afternoon, so that her mother can get here, and then accompany her to [facility] on Fri. for her OP appt. with . I had just called [facility] and arranged for this pt. to be transferred by ambulance as she is completely obstructed from her rectal cancer. Patient has been instructed to discuss this issue with the Cancer Center staff at [facility]. Decision re: Tf vs D/C is pending. Physical Exam Vital Signs: Temp Pulse Resp BP Pulse Ox 98.8 F 71 16 131/82 H 100 07/17/16 09:01 07/17/16 09:01 07/17/16 09:01 07/17/16 09:01 07/17/16 09:01 Intake & Output 07/16/16 07/17/16 07/18/16 06:59 06:59 06:59 Intake Total 1365 1940 Balance 1365 1940 Weight 112.5 kg 111.4 kg Results Laboratory Results: 07/15/16 07:32 Impressions: Acute Abdomen Series 07/12/16 14:29 IMPRESSION: NONSPECIFIC BOWEL GAS PATTERN. Abdomen/Pelvis CT 07/12/16 16:55 IMPRESSION: MARKED INFLAMMATORY CHANGE INVOLVING THE RECTOSIGMOID COLON SIMILAR IN APPEARANCE TO PRIOR STUDY IN PRESUMABLY REPRESENTS INFECTIOUS OR INFLAMMATORY COLITIS/PROCTITIS. CORRELATE WITH CLINICAL HISTORY AND CONSIDER GI CONSULTATION FOR ENDOSCOPIC CORRELATION. STABLE LEFT ADRENAL ADENOMAS. Chest CT 07/15/16 00:00 IMPRESSION: 1. No metastases are seen in the thorax. 2. There is a large low-density left adrenal nodule suggestive of an adenoma. Assessment & Plan - Diagnosis (3) Rectal adenocarcinoma Is this a current diagnosis for this admission?: Yes
--- NOTE | 2016-07-17 11:44 | RADIOLOGY REPORT (SQ) ---
EXAM DESCRIPTION: MRI PELVIS COMBO COMPLETED DATE/TIME: 07/16/2016 REASON FOR STUDY: Rectal Carcinoma COMPARISON: CT abdomen from 07/12/2016. TECHNIQUE: Sagittal, axial oblique, and coronal oblique T2-weighted images of the pelvis without con trast centered on the rectum. Axial images of the pelvis. Per the referring clinician, IV contrasted sequences were additionally obtained after administration of 20 cc ProHance. GFR greater than 60. FINDINGS: Many of the sequences are limited by motion artifact. BRIEF DESCRIPTION OF MASS: Irregular circumferential wall thickening in the upper rectum. LOCATION OF TUMOR: high. 10-15 cm DISTANCE FROM ANORECTAL JUNCTION TO LOWER POLE OF TUMOR: To my measurement, between 10 and 15 cm from the anal verge. Tortuosity of the colon limits accurate assessment. Per colonoscopy report, approx imately 15 cm from the anal verge. CIRCUMFERENTIAL LOCATION OF TUMOR: This appears to be a fully circumferential tumor, 360 about the c ircumference with left lateral predominance, adjacent deep soft tissue findings as above. LENGTH OF TUMOR: Limited assessment due to thickening of the sigmoid colon. Tumor appears to be at l east 5 cm in craniocaudal extent. INVOLVEMENT OF MUSCULARIS PROPIA: Yes. EXTENSION BEYOND MUSCULARIS PROPIA: Yes, along the left perirectal soft tissues, irregular extra olga nal soft tissue with spiculation and associated enhancement. There is a thick-walled peripherally en hancing roughly rounded focus to the left of midline close to the left vaginal fornix and directly ab utting the lower rectum. CT suggests this may represent a small contained perforation or abscess. P lease refer to series 12, image 14 and adjacent DISTANCE BETWEEN TUMOR AND MESORECTAL FASCIA: Distortion extends to directly abut the left mesorectal fascia. PATHOLOGIC LYMPH NODES: Slightly conspicuous lymph node along the left iliac vessels measures 1.6 cm in length by 1.2 cm short axis. Refer to series 6, image 11/09. INVASION OF PELVIC STRUCTURES: No clear invasion of the uterus or bladder. Fairly extensive enhanci ng distorted tissue extends to abut the sigmoid colon. Much of this may simply represent desmoplasti c response. However bowel generally looks thickened in the region. Secondary involvement of sigmoid colon possible. As above, potential thick-walled abscess adjacent to the left vaginal fornix. IMPRESSION: Known rectal adenocarcinoma. This looks like a high lesion, circumferential with left p erirectal extension, distortion and abnormal enhancing soft tissue which extends to abut the sigmoid colon and left mesorectal fascia. Associated findings as below. T STAGE: Suspicious for T4 disease, possible invasion of adjacent sigmoid colon. N STAGE: N1 1-3 pathologic lymph nodes TECHNICAL DOCUMENTATION: JOB ID: [id number] [employer]- All Rights Reserved
[2016-07-17 12:13] VITALS: BP 139/68
--- NOTE | 2016-07-17 15:14 | DISCHARGE SUMMARY E ---
Discharge Summary NAME: CARMINA HUBER : 1970 AGE: 45Y ADMITTED: 07/12/2016 DISCHARGED: 07/17/2016 DISCHARGE DIAGNOSIS: Obstructing rectal carcinoma. This 45-year-old female presented to the emergency room complaining of abdominal pain and loose stool. The patient was found to have generalized tenderness in the abdomen without guarding or rebound. White count was 21,000. Labs were within normal limits otherwise. The patient underwent a CT scan which suggested significant colitis involving the sigmoid and the rectosigmoid colon and the rectum which was considered either inflammatory or infectious. The patient was admitted to the hospital and was placed on Cipro and Flagyl and the patient had marked improvement within 24 hours. However, when CBC was repeated to check the white count which returned to normal, the patient was noted to have a hemoglobin of 7.3 and 23 hematocrit with no obvious source of bleeding. For this reason, colonoscopy was decided to be done sooner rather than later and the patient underwent colonoscopy by Dr. Maldonado who found an obstructive rectal carcinoma at the 15 cm christopher. The pediatric colonoscope could not traverse the tumor. With this finding, it was decided that the patient would be better served to be transferred to [place] to the service of Dr. Abdi. In contacting his office, it was decided that the patient could be seen as an outpatient at his office on 06/18/2016 at 1445 hours and although the patient has complete rectal obstruction, she has no significant abdominal pain. There is no nausea, no vomiting and she is tolerating a clear-liquid diet. The patient decided that she wanted to be discharged so that her mother could accompany her to [place] in 48 hours for her outpatient appointment at the [facility] to see Dr. Abdi, the colorectal surgeon there. The patient is now discharged there with a prescription for Percocet and I will be following the patient through Dr. Abdi. DICTATING PHYSICIAN: SPENCER MIMS M.D. [id number] PHY#: [id number] ID: [id number] JOB#: [id number] ACCT: [id number] cc:Mandy MENENDEZ PA >
== END 2016-07-17 14:13 | disposition home or self-care (01) | DRG 392 ==
LOC: ER 12:57 → EH 20:34 → INTOOBSV 20:34 → UNDOADMOB 20:34 → 2N 21:06 → EH 21:50 → INTOOBSV 07-14 08:00 → OBSVTOIN 07-14 08:00
PROVIDERS: ADMIT Surgery; ATTEND Surgery
PROC: 30233N1 Transfusion of Nonautologous Red Blood Cells into Peripheral Vein, Percutaneous Approach (ICD-10-PCS; 2016-07-14)
PROC: 0DBP8ZX Excision of Rectum, Via Natural or Artificial Opening Endoscopic, Diagnostic (ICD-10-PCS; principal; 2016-07-15 10:00)
DX: K52.9 Noninfective gastroenteritis and colitis, unspecified (principal); C20 Malignant neoplasm of rectum; K62.5 Hemorrhage of anus and rectum; D64.9 Anemia, unspecified; F17.210 Nicotine dependence, cigarettes, uncomplicated; Z88.6 Allergy status to analgesic agent; Z88.4 Allergy status to anesthetic agent
CPT/HCPCS: 36415; 36430; 45380; 71260; 72197; 74022; 74177; 80053; 81001; 81025; 82378; 84703; 85025; 85027; 86850; 86900; 86901; 86920; 87040; 87077; 87186; 88305; 96374; 96376; 99285; A9576; G0378; J0171; J0744; J1170; J1610; J1650; J1885; J2250; J2310; J2405; J3010; J3490; J7030; P9016; S0119